=== PATIENT | female | born 1990 | race American Indian/Alaskan Native ===

== ENCOUNTER 2017-05-02 18:24 | Inpatient (IN) | payer OTHER ==
--- NOTE | 2017-05-02 18:56 | Emergency Department Report ---
Stated Complaint: 6 WEEKS /THROWING UP Time Seen by Provider: 05/02/17 18:54 - HPI History of Present Illness: PT states she is 6 weeks and vomiting. pt states she has been vomiting. - ROS Review of Systems: - vaginal bleeding + low back pain + lower abd pain - Exam Physical Exam: PT appears anxious in triage, however, pt appears non toxic abd is soft, rlq ttp MSE screening note: Focused history and physical exam performed. Due to findings the following was ordered: labs, us ED Disposition for MSE Condition: Stable
[2017-05-02 20:15] LABS: Bacteria,Urine 1+ /HPF (Negative); Bilirubin,Urine NEG (Negative); Blood,Urine LG (Negative); Ketones,Urine 80 mg/dL (Negative); Leukocyte Esterase,Urine NEG (Negative); Mucus,Urine 3+ /HPF; Nitrite,Urine NEG (Negative)
[2017-05-02 20:27] LABS: Basophils % (Auto) 0.2 % (0.0-1.8); Hematocrit 40.7 % (30.3-42.9); Hemoglobin 13.4 gm/dl (10.1-14.3); Mean Corpuscular HGB Conc 33 % (30-34); Mean Corpuscular Volume 77 fl (79-97); Platelet Count 236 K/mm3 (140-440); White Blood Count 17.7 K/mm3 (4.5-11.0)
[2017-05-02 20:28] LABS: Mean Corpuscular Hemoglobin 25 pg (28-32)
[2017-05-02 20:46] LABS: Alanine Aminotransferase 49 units/L (7-56); Albumin 4.1 g/dL (3.9-5); Albumin/Globulin Ratio 1.3 %; Alkaline Phosphatase 85 units/L (35-129); Anion Gap 20 mmol/L; BUN/Creatinine Ratio 53.33; Blood Urea Nitrogen 16 mg/dL (7-17); Calcium 9.8 mg/dL (8.4-10.2); Carbon Dioxide 24 mmol/L (22-30); Chloride 93.7 mmol/L (98-107); Glucose 105 mg/dL (65-100); Sodium 135 mmol/L (137-145); Total Protein 7.3 g/dL (6.3-8.2)
[2017-05-02 20:53] LABS: Potassium 2.8 mmol/L (3.6-5.0)
--- NOTE | 2017-05-02 23:13 | Ultrasound Report ---
FINAL REPORT EXAM: US OB \T\lt; = 14 WEEKS FETUS HISTORY: lower abd pain TECHNIQUE: Transabdominal and endovaginal ultrasound was performed in multiple grayscale sonographic images were obtained of the uterus and adnexa PRIORS: Endovaginal ultrasound 05/02/2017 FINDINGS: Uterus measures approximately 8.4 x 6.4 x 7 centimeters. There is a gestational sac in the uterus with a pole that measures 2.8 centimeters in length. heart rate was detected at 187 beats per minute. Yolk sac is identified. Right ovary measures approximately 2.3 x 1.7 x 1.3 centimeters. Left ovary was not identified with certainty during the exam. IMPRESSION: 1. Viable single intrauterine with estimated gestational age 9 weeks 4 days. Estimated due date 12/01/2017. Continued follow-up is recommended. 2. Nonvisualization of left ovary.
--- NOTE | 2017-05-02 23:13 | Ultrasound Report ---
FINAL REPORT EXAM: US OB TRANSVAGINAL HISTORY: lower abd pain TECHNIQUE: Endovaginal ultrasound was performed in multiple grayscale sonographic images were obtained of the uterus and adnexa. PRIORS: Transabdominal pelvic ultrasound 05/02/2017 FINDINGS: There is a gestational sac in the uterus with a pole that measures 2.8 centimeters in length. heart rate was detected at 187 beats per minute. Yolk sac is identified. Right ovary measures approximately 2.3 x 1.7 x 1.3 centimeters. Left ovary was not identified with certainty during the exam. IMPRESSION: 1. Viable single intrauterine with estimated gestational age 9 weeks 4 days. Estimated due date 12/01/2017. Continued follow-up is recommended. 2. Nonvisualization of left ovary.
[2017-05-03] MEDS ORDERED: ZOFRAN IV ONE ×2 (03:50→05:02)
[2017-05-03] MEDS ORDERED: NACL 0.9% 1000 ML 1,000 ML IV ONE ×2 (03:50)
[2017-05-03] MEDS ORDERED: TYLENOL PO ONE (05:00)
[2017-05-03] MEDS ORDERED: TYLENOL ONE (05:02)
--- NOTE | 2017-05-03 05:48 | Emergency Department Report ---
HPI - General Chief Complaint: Abdominal Pain Time Seen by Provider: 05/02/17 18:54 - HPI HPI: This is a 27 year-old female presents to the emergency department with complaint of lower abdominal and/or pelvic pain, nausea and vomiting for the past 3 days. Patient says that she has not been able to keep down any food or liquids over this time. She is about 6 weeks . With this she is with one live child. She does not have an PHARMACY BENEFIT MANAGER. She has been unable to take anything for her symptoms secondary to the consistent nausea and vomiting. No recent travel or sick contacts at home. She otherwise denies any past medical or surgical history. ED Past Medical Hx - Surgical History Past Surgical History?: No - Social History Smoking Status: Never Smoker Substance Use Type: None ED Review of Systems ROS: Stated complaint: 6 WEEKS /THROWING UP Other details as noted in HPI Comment: All other systems reviewed and negative Constitutional: denies: chills, fever Eyes: denies: eye pain, eye discharge, vision change ENT: denies: ear pain, throat pain Respiratory: denies: cough, shortness of breath, wheezing Cardiovascular: denies: chest pain, palpitations Gastrointestinal: abdominal pain, nausea, vomiting Genitourinary: denies: urgency, dysuria, discharge Musculoskeletal: denies: back pain, joint swelling, arthralgia Skin: denies: rash, lesions Neurological: denies: headache, weakness, paresthesias Physical Exam - Physical Exam Vital Signs: Vital Signs 05/02/17 05/02/17 05/03/17 18:54 23:49 03:45 Temperature 98.4 F 98.5 F Pulse Rate 114 H 113 H Respiratory 18 18 Rate Blood Pressure 129/79 139/85 Blood Pressure [Left] O2 Sat by Pulse 99 100 100 Oximetry 05/03/17 05/03/17 05/03/17 03:51 04:01 04:15 Temperature Pulse Rate Respiratory 20 Rate Blood Pressure 160/82 160/82 Blood Pressure [Left] O2 Sat by Pulse 100 99 99 Oximetry 05/03/17 05/03/17 05/03/17 04:30 04:45 05:01 Temperature Pulse Rate Respiratory Rate Blood Pressure 142/69 146/75 146/75 Blood Pressure [Left] O2 Sat by Pulse 100 100 99 Oximetry 05/03/17 05/03/1705/03/17 05:15 05:30 05:42 Temperature 98.4 F Pulse Rate 107 H Respiratory 18 Rate Blood Pressure 125/62 127/72 Blood Pressure 127/72 [Left] O2 Sat by Pulse 100 100 Oximetry Physical Exam: GENERAL: The patient is well-developed well-nourished. HENT: Normocephalic. Atraumatic. Patient has moist mucous membranes. EYES: Extraocular motions are intact. Pupils equal reactive to light bilaterally. NECK: Supple. Trachea is midline. CHEST/LUNGS: Clear to auscultation. There is no respiratory distress noted. HEART/CARDIOVASCULAR: Regular. There is mild tachycardia. There is no gallop rub or murmur. ABDOMEN: Abdomen is soft. There is some lower abdominal and/or upper pelvic tenderness to palpation. No guarding or rebound tenderness. No peritoneal signs to heel strike. Patient has normal bowel sounds. There is no abdominal distention. SKIN: Skin is warm and dry. NEURO: The patient is awake, alert, and oriented. The patient is cooperative. The patient has no focal neurologic deficits. The patient has normal speech. MUSCULOSKELETAL: There is no tenderness or deformity. There is no limitation range of motion. There is no evidence of acute injury. ED Course Vital Signs 05/02/17 05/02/17 05/03/17 18:54 23:49 03:45 Temperature 98.4 F 98.5 F Pulse Rate 114 H 113 H Respiratory 18 18 Rate Blood Pressure 129/79 139/85 Blood Pressure [Left] O2 Sat by Pulse 99 100 100 Oximetry 05/03/17 05/03/17 05/03/17 03:51 04:01 04:15 Temperature Pulse Rate Respiratory 20 Rate Blood Pressure 160/82 160/82 Blood Pressure [Left] O2 Sat by Pulse 100 99 99 Oximetry 05/03/17 05/03/17 05/03/17 04:30 04:45 05:01 Temperature Pulse Rate Respiratory Rate Blood Pressure 142/69 146/75 146/75 Blood Pressure [Left] O2 Sat by Pulse 100 100 99 Oximetry 05/03/17 05/03/17 05/03/17 05:15 05:30 05:42 Temperature 98.4 F Pulse Rate 107 H Respiratory 18 Rate Blood Pressure 125/62 127/72 Blood Pressure 127/72 [Left] O2 Sat by Pulse 100 100 Oximetry - Consultations Consultation #1: I spoke to the PHARMACY BENEFIT MANAGER division traffic superintendent, Dr. Winkler, who has accepted the patient for admission to her service on to mother baby. 05/03/17 05:50 ED Medical Decision Making - Lab Data Result diagrams: 05/02/17 20:08 05/02/17 20:08 - Radiology Data Radiology results: report reviewed EXAM: US OB TRANSVAGINAL HISTORY: lower abd pain TECHNIQUE: Endovaginal ultrasound was performed in multiple grayscale sonographic images were obtained of the uterus and adnexa. PRIORS: Transabdominal pelvic ultrasound 05/02/2017 FINDINGS: There is a gestational sac in the uterus with a pole that measures 2.8 centimeters in length. heart rate was detected at 187 beats per minute. Yolk sac is identified. Right ovary measures approximately 2.3 x 1.7 x 1.3 centimeters. Left ovary was not identified with certainty during the exam. IMPRESSION: 1. Viable single intrauterine with estimated gestational age 9 weeks 4 days. Estimated due date 12/01/2017. Continued follow-up is recommended. 2. Nonvisualization of left ovary. Transcribed By: BURT Dictated By: HARDEEP CHANG MD Electronically Authenticated By: HARDEEP CHANG MD Signed Date/Time: 05/02/171910 - Medical Decision Making 27-year-old female presents to the emergency department with 3 day history of nausea and vomiting as well as some lower abdominal and/or pelvic discomfort. Ultrasound shows live intrauterine at 9 weeks and 4 days. There is nonvisualization of the left ovary but there is already a intrauterine and likelihood of concomitant left ectopic is very low. Other intra- abdominal processes are considered but she does not have any significant pain to palpation of the right lower quadrant of the abdomen or any peritoneal signs and so there is also a lower suspicion for appendicitis. She was given 2 L of IV fluid resuscitation, 8 mg total of Zofran and yet the patient continues to have nausea and vomiting and was unable to take even a sip of water and a dose of Tylenol. This reason the patient will be admitted to the hospital for hyperemesis gravidarum and has been accepted for admission by the PHARMACY BENEFIT MANAGER on-call , Dr. Winkler. - Differential Diagnosis , hyperemesis gravidarum, food poisoning, fibroids Critical Care Time: No Critical care attestation.: If time is entered above; I have spent that time in minutes in the direct care of this critically ill patient, excluding procedure time. ED Disposition Clinical Impression: Hyperemesis gravidarum, Dehydration, Hypokalemia Qualifiers: Weeks of gestation: 9 weeks Qualified Code(s): Z3A.09 - 9 weeks gestation of Nausea & vomiting Qualifiers: Vomiting type: unspecified Vomiting Intractability: intractable Qualified Code( s): R11.2 - Nausea with vomiting, unspecified Disposition: OP ADMIT IP TO THIS HOSP Is pt being admited?: Yes Condition: Stable Instructions: Abdominal Pain (ED) Referrals: PRIMARY CARE, [Primary Care Provider] - 3-5 Days Time of Disposition: 05:52
[2017-05-03] MEDS: KCL 10MEQ/100ML 10 MEQ/100 ML BAG IV SCH ×4 (06:12→13:47)
[2017-05-03] MEDS ORDERED: ZOFRAN IV PRN (07:00)
[2017-05-03] MEDS ORDERED: KCL 10MEQ/100ML 10 MEQ/100 ML BAG IV SCH (07:00)
--- NOTE | 2017-05-03 07:04 | History and Physical Report ---
History of Present Illness Date of examination: 05/03/17 Date of admission: 05/03/17 05:27 Chief complaint: n/v History of present illness: pt presents with n/v in ER. As per ER doc pt was not able to tolerate po. labs showed hypokalemia and ketones in urine. pt dated by sono today as she is not sure of lmp. She has not established care at this time. pt admitted for hyperemeis and will follow hyper emesis pathway. Past History Past Medical History: no pertinent history Past Surgical History: no surgical history Family/Genetic History: none Social history: no significant social history - Obstetrical History Expected Date of Delivery: 12/01/17 Actual Gestation: 9 Week(s) 5 Day(s) : 2 Para: 1 Number of Living Children: 1 Medications and Allergies Allergies Allergy/AdvReac Type Severity Reaction Status Date / Time hydrocodone bitartrate Allergy Shortness Verified 05/02/17 18:56 [From Vicodin] of Breath Active Meds: Active Medications Potassium Chloride (Kcl 10meq/100ml) 10 meq in 100 mls @ 100 mls/hr IV Q1H MIRIAM Stop: 05/03/17 09:59 Last Admin: 05/03/17 06:12 Dose: 100 mls/hr Dextrose/Lactated Ringer's (D5lr) 1,000 mls @ 150 mls/hr IV DIRECT MIRIAM Dextrose/Lactated Ringer's (D5lr) 1,000 mls @ 500 mls/hr IV DIRECT MIRIAM Stop: 05/04/17 08:59 Potassium Chloride (Kcl 10meq/100ml) 10 meq in 100 mls @ 100 mls/hr IV Q1H MIRIAM Stop: 05/03/17 10:59 Metoclopramide HCl (Reglan) 10 mg IV Q6H MIRIAM Multivitamins/Iron/Calcium ( Vitamin) 1 each PO QDAY MIRIAM Ondansetron HCl (Zofran) 4 mg IV Q6H PRN PRN Reason: N/V unrelieved by Reglan Promethazine HCl (Phenergan) 25 mg DC Q6H MIRIAM Review of Systems All systems: negative - Vital Signs Vital signs: Vital Signs Temp Pulse Resp BP Pulse Ox 98.4 F 114 H 18 129/79 99 05/02/17 18:54 05/02/17 18:54 05/02/17 18:54 05/02/17 18:54 05/02/17 18:54 Temp Pulse Resp BP Pulse Ox 98.3 F 107 H 18 140/66 100 05/03/17 06:40 05/03/17 06:40 05/03/17 06:40 05/03/17 06:40 05/03/17 05:42 - Physical Exam Lungs: Positive: Normal air movement Abdomen: Positive: normal appearance, soft. Negative: distention, tenderness, guarding Genitourinary (Female): Positive: other (deferred) Extremities: Positive: normal Results Result Diagrams: 05/02/17 20:08 05/02/17 20:08 All other labs normal. Assessment and Plan - Patient Problems (1) 9 weeks gestation of Current Visit: Yes Status: Acute (2) Hyperemesis gravidarum Current Visit: Yes Status: Acute Plan to address problem: -hyperemesis pathway -f/u added labs (3) Hypokalemia Current Visit: Yes Status: Acute Plan to address problem: -currently being replaced. Will repeat in the am. (4) Nausea & vomiting Current Visit: Yes Status: Acute Qualifiers: Vomiting type: unspecified Vomiting Intractability: intractable Qualified Code(s): R11.2 - Nausea with vomiting, unspecified
[2017-05-03] MEDS ORDERED: D5LR 1,000 ML IV SCH (08:00)
[2017-05-03 08:01] LABS: Amylase 84 units/L (27-131); Lipase 12 units/L (13-60)
[2017-05-03] MEDS: PHENERGAN PR SCH ×3 (08:20→20:18)
[2017-05-03] MEDS: REGLAN IV SCH ×3 (08:31→20:18)
[2017-05-03] MEDS ORDERED: PRENATAL VITAMIN PO SCH (10:00)
[2017-05-03] MEDS: D5LR 1,000 ML IV SCH ×2 (11:41→20:18)
[2017-05-03 12:27] LABS: Urine Drugs of Abuse Note Disclamer
[2017-05-04] MEDS: REGLAN IV SCH ×2 (02:00→08:09)
[2017-05-04] MEDS: PHENERGAN PR SCH ×2 (02:01→08:09)
[2017-05-04] MEDS: D5LR 1,000 ML IV SCH (04:50)
[2017-05-04 05:56] LABS: Anion Gap 13 mmol/L; Blood Urea Nitrogen 5 mg/dL (7-17); Carbon Dioxide 26 mmol/L (22-30); Chloride 102.1 mmol/L (98-107); Glucose 116 mg/dL (65-100); Potassium 3.3 mmol/L (3.6-5.0); Sodium 138 mmol/L (137-145)
--- NOTE | 2017-05-04 06:34 | Progress Note ---
Assessment and Plan - Patient Problems (1) Hyperemesis gravidarum Onset Date: ~05/03/17 Current Visit: Yes Status: Acute Plan to address problem: Pt states she is feeling much better this AM. She c/o some spitting over night but no vomiting. VSS BP 130/70 Ketones are negative. Thyroid Free T4 elevated TSH is low. Will consult with for any f/u. Continue care as ordered Possible d/c later today. Subjective - Subjective Date of service: 05/04/17 (pt states she feels much better; has only had some spitting over night) Principal diagnosis: Hyperemisis Patient reports: appetite normal, voiding normally, ambulating normally Objective - Vital Signs Latest vital signs: Vital Signs Temp Pulse Resp BP 05/04/17 04:15 98.3 F 90 18 130/70 05/04/17 00:45 97.2 F L 92 H 18 140/74 05/03/17 20:00 98.4 F 98 H 18 135/71 05/03/17 16:10 98.4 F 91 H 18 139/69 05/03/17 12:15 98.3 F 99 H 18 134/70 05/03/17 08:10 98.4 F 108 H 19 134/76 05/03/17 06:40 98.3 F 107 H 18 140/66 Intake and Output 05/03/17 05/03/17 05/04/17 14:59 22:59 06:59 Intake Total 295 3515 1360 Output Total 650 Balance -355 3515 1360 Intake: IV 295 3275 1000 D5lr 1,000 ml @ 150 mls/ 1875 1000 hr IV DIRECT MIRIAM Rx#: [id number] D5lr 1,000 ml @ 500 mls/ 1000 hr IV DIRECT MIRIAM Rx#: [id number] KCL 10MEQ/100ML 10 meq In 295 100 ml @ 100 mls/hr IV Q1H MIRIAM Rx#:[id number] KCL 10MEQ/100ML 10 meq In 400 100 ml @ 100 mls/hr IV Q1H MIRIAM Rx#:[id number] Oral 240 360 Output: Urine 650 Void 650 Other: Total, Intake Amount 240 120 Total, Output Amount 250 Voiding Method Toilet Toilet # Voids Void 1 1 1 Weight 130 lb Patient Weight 05/04/17 06:59 Weight 130 lb - Exam Breasts: Present: deferred Cardiovascular: Present: Regular rate Lungs: Present: Normal air movement Abdomen: Present: normal appearance, soft Vulva: both: normal Uterus: Present: normal Extremities: Present: normal Deep Tendon Reflex Grade: Normal +2 - Labs Labs: Abnormal lab results 05/03/17 05/03/17 05/03/17 Range/Units 07:25 07:25 16:57 Potassium (3.6-5.0) mmol/L BUN (7-17) mg/dL Creatinine (0.7-1.2) mg/dL Glucose (65-100) mg/dL Lipase 12 L (13-60) units/L TSH < 0.005 L < 0.005 L (0.270-4.200) mlU/mL Free T4 > 7.77 H (0.76-1.46) ng/dL 05/04/17 Range/Units 04:56 Potassium 3.3 L (3.6-5.0) mmol/L BUN 5 L (7-17) mg/dL Creatinine 0.2 L (0.7-1.2) mg/dL Glucose 116 H (65-100) mg/dL Lipase (13-60) units/L TSH (0.270-4.200) mlU/mL Free T4 (0.76-1.46) ng/dL
--- NOTE | 2017-05-04 09:01 | Discharge Summary ---
Providers - Providers Date of Admission: 05/03/17 05:27 Attending physician: ESTELLE BASHIR Primary care physician: CORRECTIVE THERAPIST Hospitalization Condition: Good Disposition: DC-01 TO HOME OR SELFCARE - Discharge Diagnoses (1) Hyperthyroidism affecting in first trimester Status: Acute (2) 9 weeks gestation of Status: Acute (3) Dehydration Status: Acute (4) Hyperemesis gravidarum Status: Acute Core Measure Documentation - Palliative Care Palliative Care/ Comfort Measures: Not Applicable - Core Measures Any of the following diagnoses?: none Exam - Constitutional Vitals: Temp Pulse Resp BP Pulse Ox 98.3 F 90 18 130/70 100 05/04/17 04:15 05/04/17 04:15 05/04/17 04:05/04/17 04:05/03/17 05:42 Plan Activity: other (No sex) Weight Bearing Status: Weight Bear as Tolerated Diet: clear liquids (clear liquids for 24 hours then advanced to banana, Rice, applesauce and toast. Avoid spicy, fatty, and acidic foods. Drink 64 ounces of water a day.) Special Instructions: no heavy lifting Follow up with: ESTELLE BASHIR MD [Staff Physician] - 05/10/17 1:30 pm Prescriptions: Vit No.130/Iron/FA [ Tablet] 1 each PO DAILY #90 tablet Promethazine [Phenergan SUPPOS] 25 mg TX Q6H #15 supp.rect Propylthiouracil 100 mg PO TID #60 tab Propylthiouracil 100 mg PO TID #60 tab
[2017-05-04 13:10] VITALS: BP 120/68
[2017-05-04] MEDS ORDERED: PROPYLTHIOURACIL PO SCH ×2 (14:00)
== END 2017-05-04 15:30 | disposition home or self-care (01) | DRG 781 ==
LOC: ED 18:24 → OB 05-03 05:27
PROVIDERS: ADMIT Obstetrics & Gynecology; ATTEND Obstetrics & Gynecology
DX: O99.281 Endocrine, nutritional and metabolic diseases complicating pregnancy, first trimester (principal); O21.0 Mild hyperemesis gravidarum; E86.0 Dehydration; E87.6 Hypokalemia; Z3A.09 9 weeks gestation of pregnancy; Z88.5 Allergy status to narcotic agent; E05.80 Other thyrotoxicosis without thyrotoxic crisis or storm
CPT/HCPCS: 36415; 76801; 76817; 80048; 80053; 80307; 81001; 82010; 82150; 83690; 84439; 84443; 84702; 85025; 86900; 86901; 96361; 96374; 96376; J2405; J2765; J3480; J7030; J7121

== ENCOUNTER 2017-05-25 21:27 | Emergency (ER) | payer SELFPAY ==
[2017-05-25] MEDS ORDERED: NACL 0.9% 1000 ML 1,000 ML IV ONE (21:49)
--- NOTE | 2017-05-25 21:50 | Emergency Department Report ---
ED HPI - General Chief complaint: Vaginal Bleeding Stated complaint: VAG BLEED 16 WKS PREG Time Seen by Provider: 05/25/17 21:47 Source: patient, EMS (ems notes not available at time of chart dictation), RN notes reviewed, old records reviewed Mode of arrival: Stretcher Limitations: No Limitations - History of Present Illness Initial comments: This is a 27-year-old female who was previously unknown to this provider, patient recently admitted to the obstetric service for hyperemesis, presenting with lower abdominal cramping and vaginal bleeding. Symptoms are constant. Pain is suprapubic. It does not radiate anywhere. Pain increases with palpation and range of motion, decreases with rest. No fevers or chills, no chest pain, no urinary symptoms, patient is quite anxious. MD Complaint: abdominal pain, vaginal bleeding -: Gradual Location: abdomen Radiation: suprapubic Severity: moderate Quality: stabbing Consistency: constant Improves with: rest Worsens with: movement Associated symptoms: vaginal bleeding. denies: dysuria OB History - Previous Pregnancies: hyperemesis Pre- care: none, previous ultrasound confi - Related Data Previous Rx's Medication Instructions Recorded Last Taken Type Vit No.130/Iron/Folic 1 each PO DAILY #90 tablet 05/04/17 Unknown Rx [ Tablet] Promethazine [Phenergan SUPPOS] 25 mg NH Q6H #15 supp.rect 05/04/17 Unknown Rx Propylthiouracil 100 mg PO TID #60 tab 05/04/17 Unknown Rx Propylthiouracil 100 mg PO TID #60 tab 05/04/17 Unknown Rx Allergies Allergy/AdvReac Type Severity Reaction Status Date / Time hydrocodone bitartrate Allergy Shortness Verified 05/02/17 18:56 [From Vicodin] of Breath ED Review of Systems ROS: Stated complaint: VAG BLEED 16 WKS PREG Other details as noted in HPI Constitutional: malaise. denies: fever Eyes: denies: vision change ENT: denies: epistaxis Respiratory: denies: cough Cardiovascular: denies: chest pain Gastrointestinal: abdominal pain Genitourinary: abnormal menses Musculoskeletal: denies: back pain Neurological: weakness Psychiatric: anxiety ED Past Medical Hx - Past Medical History Previous Medical History?: No Hx Congestive Heart Failure: No Hx Diabetes: No Hx Asthma: No Hx COPD: No - Surgical History Past Surgical History?: No - Social History Smoking Status: Unknown if ever smoked Substance Use Type: None - Medications Home Medications: Home Medications Medication Instructions Recorded Confirmed Last Taken Type Vit No.130/Iron/Folic 1 each PO DAILY #90 tablet 05/04/17 Unknown Rx [ Tablet] Promethazine [Phenergan SUPPOS] 25 mg NH Q6H #15 supp.rect 05/04/17 Unknown Rx Propylthiouracil 100 mg PO TID #60 tab 05/04/17 Unknown Rx Propylthiouracil 100 mg PO TID #60 tab 05/04/17 Unknown Rx ED Physical Exam - General Limitations: No Limitations General appearance: alert, anxious - Head Head exam: Present: atraumatic, normocephalic - Eye Eye exam: Present: normal appearance, EOMI - ENT ENT exam: Present: normal exam, normal orophraynx, mucous membranes moist - Neck Neck exam: Present: normal inspection, full ROM. Absent: tenderness, meningismus - Respiratory Respiratory exam: Present: normal lung sounds bilaterally. Absent: respiratory distress, wheezes, rales, rhonchi, stridor, chest wall tenderness, accessory muscle use, decreased breath sounds, prolonged expiratory - Cardiovascular Cardiovascular Exam: Present: normal rhythm, tachycardia, normal heart sounds. Absent: systolic murmur, diastolic murmur, rubs, gallop - GI/Abdominal GI/Abdominal exam: Present: soft, normal bowel sounds. Absent: distended, tenderness, guarding, rebound, rigid, pulsatile mass - Speculum exam: Present: other (patient declined a gynecologic examination) - Extremities Exam Extremities exam: Present: normal inspection, full ROM, normal capillary refill. Absent: pedal edema, joint swelling, calf tenderness - Back Exam Back exam: Present: normal inspection, full ROM. Absent: tenderness, CVA tenderness (R), CVA tenderness (L), muscle spasm, paraspinal tenderness, vertebral tenderness - Neurological Exam Neurological exam: Present: alert, oriented X3, normal gait, other (Extraocular movements intact. Tongue midline. No facial droop. Facial sensation intact to light touch in the V1, V2, V3 distribution bilaterally. 5 and 5 strength in 4 extremities.. Sensation is intact to light touch in 4 extremities.). Absent : motor sensory deficit - Psychiatric Psychiatric exam: Present: anxious - Skin Skin exam: Present: warm, dry, intact, normal color. Absent: rash ED Course Vital Signs 05/25/17 05/25/17 05/26/17 21:43 22:12 01:08 Temperature 98.9 F Pulse Rate 129 H 120 H 102 H Respiratory 18 18 Rate Blood Pressure 128/73 102/71 [Left] O2 Sat by Pulse 100 100 Oximetry ED Medical Decision Making - Lab Data Result diagrams: 05/25/17 21:42 05/25/17 Unknown Vital Signs 05/25/17 05/25/17 21:43 22:12 Temperature 98.9 F Pulse Rate 129 H 120 H Respiratory 18 Rate Blood Pressure 128/73 [Left] O2 Sat by Pulse 100 Oximetry Lab Results 05/25/17 05/25/17 05/25/17 Range/Units 21:42 21:42 21:42 WBC 11.0 (4.5-11.0) K/mm3 RBC 4.52 (3.65-5.03) M/mm3 Hgb 11.9 (10.1-14.3) gm/dl Hct 35.1 (30.3-42.9) % MCV 78 L (79-97) fl MCH 26 L (28-32) pg MCHC 34 (30-34) % RDW 15.0 (13.2-15.2) % Plt Count 266 (140-440) K/mm3 Lymph % (Auto) 21.7 (13.4-35.0) % [place] % (Auto) 11.2 H (0.0-7.3) % Eos % (Auto) 2.0 (0.0-4.3) % Baso % (Auto) 0.2 (0.0-1.8) % Lymph # 2.4 (1.2-5.4) K/mm3 [place] # 1.2 H (0.0-0.8) K/mm3 Eos # 0.2 (0.0-0.4) K/mm3 Baso # 0.0 (0.0-0.1) K/mm3 Seg Neutrophils % 64.9 (40.0-70.0) % Seg Neutrophils # 7.1 (1.8-7.7) K/mm3 PT INR APTT Sodium (137-145) mmol/L Potassium (3.6-5.0) mmol/L Chloride (98-107) mmol/L Carbon Dioxide (22-30) mmol/L Anion Gap mmol/L BUN (7-17) mg/dL Creatinine (0.7-1.2) mg/dL Estimated GFR ml/min BUN/Creatinine Ratio % Glucose (65-100) mg/dL Calcium (8.4-10.2) mg/dL Magnesium (1.7-2.3) mg/dL HCG, Quant 7270 H (0-4) mIU/mL Urine Color (Yellow) Urine Turbidity (Clear) Urine pH (5.0-7.0) Ur Specific [place] (1.003-1.030) Urine Protein (Negative) mg/dL Urine Glucose (UA) (Negative) mg/dL Urine Ketones (Negative) mg/dL Urine Blood (Negative) Urine Nitrite (Negative) Urine Bilirubin (Negative) Urine Urobilinogen (<2.0) mg/dL Ur Leukocyte Esterase (Negative) Urine WBC (Auto) (0.0-6.0) /HPF Urine RBC (Auto) (0.0-6.0) /HPF U Epithel Cells (Auto) (0-13.0) /HPF Urine Bacteria (Auto) (Negative) /HPF Urine Mucus /HPF Blood Type O POSITIVE Antibody Screen TNR ARMANDO Antibody Screen Negative 05/25/17 05/25/17 05/25/17 Range/Units 22:04 22:50 23:04 WBC (4.5-11.0) K/mm3 RBC (3.65-5.03) M/mm3 Hgb (10.1-14.3) gm/dl Hct (30.3-42.9) % MCV (79-97) fl MCH (28-32) pg MCHC (30-34) % RDW (13.2-15.2) % Plt Count (140-440) K/mm3 Lymph % (Auto) (13.4-35.0) % [place] % (Auto) (0.0-7.3) % Eos % (Auto) (0.0-4.3) % Baso % (Auto) (0.0-1.8) % Lymph # (1.2-5.4) K/mm3 [place] # (0.0-0.8) K/mm3 Eos # (0.0-0.4) K/mm3 Baso # (0.0-0.1) K/mm3 Seg Neutrophils % (40.0-70.0) % Seg Neutrophils # (1.8-7.7) K/mm3 PT TNR 13.2 INR TNR 0.95 APTT TNR 34.0 Sodium (137-145) mmol/L Potassium (3.6-5.0) mmol/L Chloride (98-107) mmol/L Carbon Dioxide (22-30) mmol/L Anion Gap mmol/L BUN (7-17) mg/dL Creatinine (0.7-1.2) mg/dL Estimated GFR ml/min BUN/Creatinine Ratio % Glucose (65-100) mg/dL Calcium (8.4-10.2) mg/dL Magnesium (1.7-2.3) mg/dL HCG, Quant (0-4) mIU/mL Urine Color Yellow (Yellow) Urine Turbidity Clear (Clear) Urine pH 5.0 (5.0-7.0) Ur Specific [place] 1.018 (1.003-1.030) Urine Protein <15 mg/dl (Negative) mg/dL Urine Glucose (UA) Neg (Negative) mg/dL Urine Ketones Neg (Negative) mg/dL Urine Blood Lg (Negative) Urine Nitrite Neg (Negative) Urine Bilirubin Neg (Negative) Urine Urobilinogen 2.0 (<2.0) mg/dL Ur Leukocyte Esterase Tr (Negative) Urine WBC (Auto) 4.0 (0.0-6.0) /HPF Urine RBC (Auto) 12.0 (0.0-6.0) /HPF U Epithel Cells (Auto) 4.0 (0-13.0) /HPF Urine Bacteria (Auto) 1+ (Negative) /HPF Urine Mucus 1+ /HPF Blood Type Antibody Screen ARMANDO Antibody Screen 05/25/17 Range/Units Unknown WBC (4.5-11.0) K/mm3 RBC (3.65-5.03) M/mm3 Hgb (10.1-14.3) gm/dl Hct (30.3-42.9) % MCV (79-97) fl MCH (28-32) pg MCHC (30-34) % RDW (13.2-15.2) % Plt Count (140-440) K/mm3 Lymph % (Auto) (13.4-35.0) % [place] % (Auto) (0.0-7.3) % Eos % (Auto) (0.0-4.3) % Baso % (Auto) (0.0-1.8) % Lymph # (1.2-5.4) K/mm3 [place] # (0.0-0.8) K/mm3 Eos # (0.0-0.4) K/mm3 Baso # (0.0-0.1) K/mm3 Seg Neutrophils % (40.0-70.0) % Seg Neutrophils # (1.8-7.7) K/mm3 PT INR APTT Sodium 139 (137-145) mmol/L Potassium 3.8 (3.6-5.0) mmol/L Chloride 102.9 (98-107) mmol/L Carbon Dioxide 22 (22-30) mmol/L Anion Gap 18 mmol/L BUN 7 (7-17) mg/dL Creatinine 0.3 L (0.7-1.2) mg/dL Estimated GFR > 60 ml/min BUN/Creatinine Ratio 23 % Glucose 102 H (65-100) mg/dL Calcium 9.2 (8.4-10.2) mg/dL Magnesium 1.70 (1.7-2.3) mg/dL HCG, Quant (0-4) mIU/mL Urine Color (Yellow) Urine Turbidity (Clear) Urine pH (5.0-7.0) Ur Specific [place] (1.003-1.030) Urine Protein (Negative) mg/dL Urine Glucose (UA) (Negative) mg/dL Urine Ketones (Negative) mg/dL Urine Blood (Negative) Urine Nitrite (Negative) Urine Bilirubin (Negative) Urine Urobilinogen (<2.0) mg/dL Ur Leukocyte Esterase (Negative) Urine WBC (Auto) (0.0-6.0) /HPF Urine RBC (Auto) (0.0-6.0) /HPF U Epithel Cells (Auto) (0-13.0) /HPF Urine Bacteria (Auto) (Negative) /HPF Urine Mucus /HPF Blood Type Antibody Screen ARMANDO Antibody Screen - EKG Data -: EKG Interpreted by Me Rate: tachycardia - EKG Data 05/26/17 01:09 Sinus tachycardia, with 117 bpm, normal axis, QTC prolonged, not marked logically consistent with STEMI - Radiology Data Radiology results: report reviewed, image reviewed Transvaginal ultrasound/obstetrics ultrasound demonstrates demise - Medical Decision Making Differential diagnosis: demise, miscarriage, anxiety, dehydration Assessment and plan: 27-year-old female, presenting with lower abdominal cramping, reported vaginal bleeding, ultrasound demonstrates demise. Patient recently admitted to the hospital for hyperemesis, at that time, she was 9 weeks and 5 days, this was 05/03/2017, Patient declined a gynecologic examination, the patient is Rh+, she does not have irritative and obstructive urinary symptoms. She is somewhat anxious, got a few liters of fluid and some IV Benadryl, heart rate now 102 bpm, patient is quite anxious. I would expect some physiologic tachycardia from , patient has not been bleeding copiously, she is hemodynamically stable at this time. Patient will be discharged with instructions to follow-up with gynecology and for expected management. Critical care attestation.: If time is entered above; I have spent that time in minutes in the direct care of this critically ill patient, excluding procedure time. ED Disposition Clinical Impression: Miscarriage Disposition: DC-01 TO HOME OR SELFCARE Is pt being admited?: No Does the pt Need Aspirin: No Condition: Stable Instructions: Spontaneous Miscarriage (ED) Additional Instructions: Rest and avoid heavy lifting. Avoid strenuous physical activity. Avoid sex and heavy lifting, and follow up with a florist supplies salesperson as soon as possible. you have experienced a miscarriage. It is very important to follow up with outpatient gynecology. Return to the ER right away with fevers, chills, chest pain, shortness of breath , confusion, loss of consciousness, intractable nausea or vomiting, inability to tolerate liquid feeds, bleeding more than 2 pads per hour, lightheadedness, loss of consciousness. Referrals: PRIMARY CARE, [Primary Care Provider] - 3-5 Days [facility] [Provider Group] - 3-5 Days [facility] [Provider Group] - 3-5 Days [facility] [Provider Group] - 3-5 Days
[2017-05-25] MEDS ORDERED: D5/0.45NS 1,000 ML IV SCH (22:00)
[2017-05-25 22:06] LABS: Basophils % (Auto) 0.2 % (0.0-1.8); Hematocrit 35.1 % (30.3-42.9); Hemoglobin 11.9 gm/dl (10.1-14.3); Mean Corpuscular HGB Conc 34 % (30-34); Mean Corpuscular Hemoglobin 26 pg (28-32); Mean Corpuscular Volume 78 fl (79-97); Platelet Count 266 K/mm3 (140-440); Red Blood Count 4.52 M/mm3 (3.65-5.03)
[2017-05-25 22:24] LABS: Anion Gap 18 mmol/L; BUN/Creatinine Ratio 23; Blood Urea Nitrogen 7 mg/dL (7-17); Calcium 9.2 mg/dL (8.4-10.2); Carbon Dioxide 22 mmol/L (22-30); Chloride 102.9 mmol/L (98-107); Glucose 102 mg/dL (65-100); Potassium 3.8 mmol/L (3.6-5.0); Sodium 139 mmol/L (137-145)
[2017-05-25 22:58] LABS: INR TNR (0.87-1.13)
[2017-05-25 23:01] LABS: Partial Thromboplastin Time TNR Sec. (24.2-36.6)
[2017-05-25 23:08] LABS: Bacteria,Urine 1+ /HPF (Negative); Bilirubin,Urine NEG (Negative); Blood,Urine LG (Negative); Ketones,Urine NEG (Negative); Leukocyte Esterase,Urine TR (Negative); Mucus,Urine 1+ /HPF; Nitrite,Urine NEG (Negative); Protein,Urine <15 mg/dL mg/dL (Negative)
[2017-05-25] MEDS ORDERED: BENADRYL IV ONE (23:14)
[2017-05-25 23:36] LABS: INR 0.95 (0.87-1.13)
--- NOTE | 2017-05-25 23:56 | Ultrasound Report ---
FINAL REPORT EXAM: US OB TRANSVAGINAL HISTORY: vag bleed TECHNIQUE: Real-time sonography was performed of the gravid uterus endovaginally and images are submitted for interpretation. PRIORS: None. FINDINGS: There is a gestational sac in the uterus with a pole that measures 3.6 cm for an estimated gestational age of 10 weeks 3 days. No heart motion is demonstrated. The skin appears edematous. The left ovary appears normal measuring 2.6 x 1.3 x 2.2 cm. The right ovary was not visualized. IMPRESSION: Intrauterine gestation at 10 weeks 3 days with demise.
--- NOTE | 2017-05-26 00:06 | Ultrasound Report ---
FINAL REPORT PROCEDURE: US OB \T\lt; = 14 WEEKS FETUS TECHNIQUE: Real-time transabdominal sonography of the uterus, placenta, amniotic fluid, adnexa, and fetus was performed with image documentation. Measurements were obtained to determine age/size. M-mode Doppler was used to document heartbeat. CPT 71579 HISTORY: vag bleed COMPARISON: No prior studies are available for comparison. FINDINGS: CRL: 3.6 mm, which corresponds to a gestational age of: 10 weeks, 3 days. Yolk Sac: Normal. Embryonic Cardiac Activity: None detected Gestational Sac: Normal. Amniotic fluid: Normal. Cervix: Normal. Right Ovary: Not identified Left Ovary: 2.6 x 1.3 x 2.2 Estimated delivery date: 12/18/2017 Uterus and adnexa: Normal. IMPRESSION: Nonviable at 10 weeks and 1 day. There is no cardiac activity.
[2017-05-26 01:09] VITALS: BP 102/71
== END 2017-05-26 01:30 | disposition home or self-care (01) ==
LOC: ED 21:27
DX: O03.9 Complete or unspecified spontaneous abortion without complication (principal); Z88.8 Allergy status to other drugs, medicaments and biological substances
CPT/HCPCS: 36415; 76801; 76817; 80048; 81001; 83735; 84702; 85025; 85610; 85730; 86850; 86900; 86901; 93005; 93010; 96361; 96374; 99285; J1200; J7030

== ENCOUNTER 2020-01-27 14:06 | Emergency (ER) | payer MEDICAID ==
[2020-01-27 16:05] LABS: Basophils % (Auto) 0.5 % (0.0-1.8); Eosinophils % (Auto) 1.6 % (0.0-4.3); Hemoglobin 12.3 gm/dl (10.1-14.3); Lymphocytes % (Auto) 15.8 % (13.4-35.0); Mean Corpuscular HGB Conc 33 % (30-34); Mean Corpuscular Volume 92 fl (79-97); Monocytes % (Auto) 8.6 % (0.0-7.3); Platelet Count 254 K/mm3 (140-440); Red Blood Count 4.04 M/mm3 (3.65-5.03); Red Cell Distribution Width 13.9 % (13.2-15.2)
[2020-01-27 16:06] LABS: Basophils # (Auto) 0.1 K/mm3 (0.0-0.1); Eosinophils # (Auto) 0.2 K/mm3 (0.0-0.4); Lymphocytes # (Auto) 1.9 K/mm3 (1.2-5.4)
[2020-01-27 16:30] LABS: Alanine Aminotransferase 11 units/L (7-56); Albumin 4.6 g/dL (3.9-5); BUN/Creatinine Ratio 16; Blood Urea Nitrogen 8 mg/dL (7-17); Calcium 9.5 mg/dL (8.4-10.2)
[2020-01-27 16:37] LABS: Hemolysis Index 2
[2020-01-27 16:37] LABS: Bilirubin,Urine NEG (Negative); Blood,Urine LG (Negative); Color,Urine Yellow (Yellow); Mucus,Urine 3+ /HPF
--- NOTE | 2020-01-27 18:06 | Emergency Department Report ---
HPI <MICHAEL GARCIA - Last Filed: 01/27/20 21:32> - HPI HPI: This is a 29-year-old female presents to the emergency department with a complaint of having a "gush of blood" vaginally that occurred just prior to presentation, and the patient is about 12 weeks . With this she is G7, P2 with 2 live children and 4 previous miscarriages. The patient follows with Dr. Michaelle Martinez of [facility]. She denies any pelvic pain or cramping, fever, dysuria, vaginal discharge. Patient says that she has not had any significant bleeding since arrival to the emergency department. She has not taken anything for symptoms prior to presentation. <SAL SPARROW S - Last Filed: 01/28/20 14:22> - General Chief Complaint: Vaginal Bleeding Time Seen by Provider: 01/27/20 15:12 ED Past Medical Hx <MICHAEL GARCIA - Last Filed: 01/27/20 21:32> - Past Medical History Hx Congestive Heart Failure: No Hx Diabetes: No Hx Asthma: No Hx COPD: No - Surgical History Past Surgical History?: No - Social History Smoking Status: Former Smoker <BRENNASAL Mujica - Last Filed: 01/28/20 14:22> - Medications Home Medications: Home Medications Medication Instructions Recorded Confirmed Last Taken Type Vit No.130/Iron/Folic 1 each PO DAILY #90 tablet 05/04/17 Unknown Rx [ Tablet] Promethazine [Phenergan SUPPOS] 25 mg [place] Q6H #15 supp.rect 05/04/17 Unknown Rx propylthiouraciL [Propylthiouracil] 100 mg PO TID #60 tab 05/04/17 Unknown Rx propylthiouraciL [Propylthiouracil] 100 mg PO TID #60 tab 05/04/17 Unknown Rx Nitrofurantoin [place]/M-Cryst 100 mg PO Q12HR #14 capsule 01/27/20 Unknown Rx [Macrobid CAP] ED Review of Systems ROS: Stated complaint: PREG BLEEDING Other details as noted in HPI <ABMICHAEL - Last Filed: 01/27/20 21:32> ROS: Stated complaint: PREG BLEEDING Other details as noted in HPI Comment: All other systems reviewed and negative Constitutional: denies: chills, fever Eyes: denies: eye pain, vision change Respiratory: denies: cough, shortness of breath Cardiovascular: denies: chest pain, palpitations Gastrointestinal: denies: abdominal pain, vomiting Genitourinary: other (vaginal bleeding). denies: dysuria, discharge Musculoskeletal: denies: back pain Neurological: denies: headache, weakness <SAL SPARROW S - Last Filed: 01/28/20 14:22> Physical Exam - Physical Exam Vital Signs: Vital Signs 01/27/20 01/27/20 14:31 19:13 Temperature 98.7 F Pulse Rate 85 83 Respiratory 20 16 Rate Blood Pressure 122/77 117/68 Blood Pressure 122/77 [Left] O2 Sat by Pulse 100 96 Oximetry <MICHAEL GARCIA - Last Filed: 01/27/20 21:32> - Physical Exam Vital Signs: Vital Signs 01/27/20 14:31 Temperature 98.7 F Pulse Rate 77 Respiratory 20 Rate Blood Pressure 122/77 [Left] O2 Sat by Pulse 100 Oximetry Physical Exam: GENERAL: The patient is well-developed well-nourished. HENT: Normocephalic. Atraumatic. Patient has moist mucous membranes. EYES: Extraocular motions are intact. NECK: Supple. Trachea is midline. CHEST/LUNGS: Clear to auscultation. There is no respiratory distress noted. HEART/CARDIOVASCULAR: Regular. There is no tachycardia. ABDOMEN: Abdomen is soft, nontender. Patient has normal bowel sounds. There is no abdominal distention. SKIN: Skin is warm and dry. NEURO: The patient is awake, alert, and oriented. The patient is cooperative. Normal speech. MUSCULOSKELETAL: There is no tenderness or deformity. There is no evidence of acute injury. <SAL SPARROW S - Last Filed: 01/28/20 14:22> ED Course Vital Signs 01/27/20 01/27/20 14:31 19:13 Temperature 98.7 F Pulse Rate 85 83 Respiratory 20 16 Rate Blood Pressure 122/77 117/68 Blood Pressure 122/77 [Left] O2 Sat by Pulse 100 96 Oximetry - Reevaluation(s) Reevaluation #1: 01/27/20 21:32 Ultrasound reviewed and appreciated. Vital signs reviewed and appreciated. Abdomen soft on my repeat examination. Patient asking to leave. She will be discharged as a probable threatened miscarriage. Return precautions are reviewed. Antibiotics ordered for bacteriuria by Dr. Sparrow <MICHAEL GARCIA - Last Filed: 01/27/20 21:32> Vital Signs 01/27/20 14:31 Temperature 98.7 F Pulse Rate 77 Respiratory 20 Rate Blood Pressure 122/77 [Left] O2 Sat by Pulse 100 Oximetry <SAL SPARROW - Last Filed: 01/28/20 14:22> ED Medical Decision Making - Lab Data Result diagrams: 01/27/20 15:32 01/27/20 15:32 Lab Results 01/27/20 01/27/20 01/27/20 Range/Units 15:32 15:32 15:32 WBC 12.0 H (4.5-11.0) K/mm3 RBC 4.04 (3.65-5.03) M/mm3 Hgb 12.3 (10.1-14.3) gm/dl Hct 37.0 (30.3-42.9) % MCV 92 (79-97) fl MCH 30 (28-32) pg MCHC 33 (30-34) % RDW 13.9 (13.2-15.2) % Plt Count 254 (140-440) K/mm3 Lymph % (Auto) 15.8 (13.4-35.0) % [place] % (Auto) 8.6 H (0.0-7.3) % Eos % (Auto) 1.6 (0.0-4.3) % Baso % (Auto) 0.5 (0.0-1.8) % Lymph # 1.9 (1.2-5.4) K/mm3 [place] # 1.0 H (0.0-0.8) K/mm3 Eos # 0.2 (0.0-0.4) K/mm3 Baso # 0.1 (0.0-0.1) K/mm3 Seg Neutrophils % 73.5 H (40.0-70.0) % Seg Neutrophils # 8.8 H (1.8-7.7) K/mm3 Sodium 136 L (137-145) mmol/L Potassium 3.8 (3.6-5.0) mmol/L Chloride 101.0 (98-107) mmol/L Carbon Dioxide 24 (22-30) mmol/L Anion Gap 15 mmol/L BUN 8 (7-17) mg/dL Creatinine 0.5 L (0.7-1.2) mg/dL Estimated GFR > 60 ml/min BUN/Creatinine Ratio 16 % Glucose 80 (65-100) mg/dL Calcium 9.5 (8.4-10.2) mg/dL Total Bilirubin 0.70 (0.1-1.2) mg/dL AST 13 (5-40) units/L ALT 11 (7-56) units/L Alkaline Phosphatase 47 (35-129) units/L Total Protein 7.4 (6.3-8.2) g/dL Albumin 4.6 (3.9-5) g/dL Albumin/Globulin Ratio 1.6 % HCG, Quant 46427 H (0-4) mIU/mL Urine Color (Yellow) Urine Turbidity (Clear) Urine pH (5.0-7.0) Ur Specific [place] (1.003-1.030) Urine Protein (Negative) mg/dL Urine Glucose (UA) (Negative) mg/dL Urine Ketones (Negative) mg/dL Urine Blood (Negative) Urine Nitrite (Negative) Urine Bilirubin (Negative) Urine Urobilinogen (<2.0) mg/dL Ur Leukocyte Esterase (Negative) Urine WBC (Auto) (0.0-6.0) /HPF Urine RBC (Auto) (0.0-6.0) /HPF U Epithel Cells (Auto) (0-13.0) /HPF Urine Mucus /HPF Urine Yeast (Budding) /HPF Blood Type 01/27/20 01/27/20 Range/Units 15:32 Unknown WBC (4.5-11.0) K/mm3 RBC (3.65-5.03) M/mm3 Hgb (10.1-14.3) gm/dl Hct (30.3-42.9) % MCV (79-97) fl MCH (28-32) pg MCHC (30-34) % RDW (13.2-15.2) % Plt Count (140-440) K/mm3 Lymph % (Auto) (13.4-35.0) % [place] % (Auto) (0.0-7.3) % Eos % (Auto) (0.0-4.3) % Baso % (Auto) (0.0-1.8) % Lymph # (1.2-5.4) K/mm3 [place] # (0.0-0.8) K/mm3 Eos # (0.0-0.4) K/mm3 Baso # (0.0-0.1) K/mm3 Seg Neutrophils % (40.0-70.0) % Seg Neutrophils # (1.8-7.7) K/mm3 Sodium (137-145) mmol/L Potassium (3.6-5.0) mmol/L Chloride (98-107) mmol/L Carbon Dioxide (22-30) mmol/L Anion Gap mmol/L BUN (7-17) mg/dL Creatinine (0.7-1.2) mg/dL Estimated GFR ml/min BUN/Creatinine Ratio % Glucose (65-100) mg/dL Calcium (8.4-10.2) mg/dL Total Bilirubin (0.1-1.2) mg/dL AST (5-40) units/L ALT (7-56) units/L Alkaline Phosphatase (35-129) units/L Total Protein (6.3-8.2) g/dL Albumin (3.9-5) g/dL Albumin/Globulin Ratio % HCG, Quant (0-4) mIU/mL Urine Color Yellow (Yellow) Urine Turbidity Clear (Clear) Urine pH 6.0 (5.0-7.0) Ur Specific [place] 1.020 (1.003-1.030) Urine Protein 30 mg/dl (Negative) mg/dL Urine Glucose (UA) Neg (Negative) mg/dL Urine Ketones Neg (Negative) mg/dL Urine Blood Lg (Negative) Urine Nitrite Neg (Negative) Urine Bilirubin Neg (Negative) Urine Urobilinogen 4.0 (<2.0) mg/dL Ur Leukocyte Esterase Tr (Negative) Urine WBC (Auto) 18.0 H (0.0-6.0) /HPF Urine RBC (Auto) 116.0 (0.0-6.0) /HPF U Epithel Cells (Auto) 5.0 (0-13.0) /HPF Urine Mucus 3+ /HPF Urine Yeast (Budding) 1+ /HPF Blood Type O POSITIVE Lab Results 01/27/20 01/27/20 01/27/20 Range/Units 15:32 15:32 15:32 WBC 12.0 H (4.5-11.0) K/mm3 RBC 4.04 (3.65-5.03) M/mm3 Hgb 12.3 (10.1-14.3) gm/dl Hct 37.0 (30.3-42.9) % MCV 92 (79-97) fl MCH 30 (28-32) pg MCHC 33 (30-34) % RDW 13.9 (13.2-15.2) % Plt Count 254 (140-440) K/mm3 Lymph % (Auto) 15.8 (13.4-35.0) % [place] % (Auto) 8.6 H (0.0-7.3) % Eos % (Auto) 1.6 (0.0-4.3) % Baso % (Auto) 0.5 (0.0-1.8) % Lymph # 1.9 (1.2-5.4) K/mm3 [place] # 1.0 H (0.0-0.8) K/mm3 Eos # 0.2 (0.0-0.4) K/mm3 Baso # 0.1 (0.0-0.1) K/mm3 Seg Neutrophils % 73.5 H (40.0-70.0) % Seg Neutrophils # 8.8 H (1.8-7.7) K/mm3 Sodium 136 L (137-145) mmol/L Potassium 3.8 (3.6-5.0) mmol/L Chloride 101.0 (98-107) mmol/L Carbon Dioxide 24 (22-30) mmol/L Anion Gap 15 mmol/L BUN 8 (7-17) mg/dL Creatinine 0.5 L (0.7-1.2) mg/dL Estimated GFR > 60 ml/min BUN/Creatinine Ratio 16 % Glucose 80 (65-100) mg/dL Calcium 9.5 (8.4-10.2) mg/dL Total Bilirubin 0.70 (0.1-1.2) mg/dL AST 13 (5-40) units/L ALT 11 (7-56) units/L Alkaline Phosphatase 47 (35-129) units/L Total Protein 7.4 (6.3-8.2) g/dL Albumin 4.6 (3.9-5) g/dL Albumin/Globulin Ratio 1.6 % HCG, Quant 40344 H (0-4) mIU/mL Urine Color (Yellow) Urine Turbidity (Clear) Urine pH (5.0-7.0) Ur Specific [place] (1.003-1.030) Urine Protein (Negative) mg/dL Urine Glucose (UA) (Negative) mg/dL Urine Ketones (Negative) mg/dL Urine Blood (Negative) Urine Nitrite (Negative) Urine Bilirubin (Negative) Urine Urobilinogen (<2.0) mg/dL Ur Leukocyte Esterase (Negative) Urine WBC (Auto) (0.0-6.0) /HPF Urine RBC (Auto) (0.0-6.0) /HPF U Epithel Cells (Auto) (0-13.0) /HPF Urine Mucus /HPF Urine Yeast (Budding) /HPF Blood Type 01/27/20 01/27/20 Range/Units 15:32 Unknown WBC (4.5-11.0) K/mm3 RBC (3.65-5.03) M/mm3 Hgb (10.1-14.3) gm/dl Hct (30.3-42.9) % MCV (79-97) fl MCH (28-32) pg MCHC (30-34) % RDW (13.2-15.2) % Plt Count (140-440) K/mm3 Lymph % (Auto) (13.4-35.0) % [place] % (Auto) (0.0-7.3) % Eos % (Auto) (0.0-4.3) % Baso % (Auto) (0.0-1.8) % Lymph # (1.2-5.4) K/mm3 [place] # (0.0-0.8) K/mm3 Eos # (0.0-0.4) K/mm3 Baso # (0.0-0.1) K/mm3 Seg Neutrophils % (40.0-70.0) % Seg Neutrophils # (1.8-7.7) K/mm3 Sodium (137-145) mmol/L Potassium (3.6-5.0) mmol/L Chloride (98-107) mmol/L Carbon Dioxide (22-30) mmol/L Anion Gap mmol/L BUN (7-17) mg/dL Creatinine (0.7-1.2) mg/dL Estimated GFR ml/min BUN/Creatinine Ratio % Glucose (65-100) mg/dL Calcium (8.4-10.2) mg/dL Total Bilirubin (0.1-1.2) mg/dL AST (5-40) units/L ALT (7-56) units/L Alkaline Phosphatase (35-129) units/L Total Protein (6.3-8.2) g/dL Albumin (3.9-5) g/dL Albumin/Globulin Ratio % HCG, Quant (0-4) mIU/mL Urine Color Yellow (Yellow) Urine Turbidity Clear (Clear) Urine pH 6.0 (5.0-7.0) Ur Specific [place] 1.020 (1.003-1.030) Urine Protein 30 mg/dl (Negative) mg/dL Urine Glucose (UA) Neg (Negative) mg/dL Urine Ketones Neg (Negative) mg/dL Urine Blood Lg (Negative) Urine Nitrite Neg (Negative) Urine Bilirubin Neg (Negative) Urine Urobilinogen 4.0 (<2.0) mg/dL Ur Leukocyte Esterase Tr (Negative) Urine WBC (Auto) 18.0 H (0.0-6.0) /HPF Urine RBC (Auto) 116.0 (0.0-6.0) /HPF U Epithel Cells (Auto) 5.0 (0-13.0) /HPF Urine Mucus 3+ /HPF Urine Yeast (Budding) 1+ /HPF Blood Type O POSITIVE Vital Signs 01/27/20 01/27/20 14:31 19:13 Temperature 98.7 F Pulse Rate 85 83 Respiratory 20 16 Rate Blood Pressure 122/77 117/68 Blood Pressure 122/77 [Left] O2 Sat by Pulse 100 96 Oximetry - Radiology Data Radiology results: report reviewed, image reviewed Print Report Referring Physician: HALEIGH SALAZAR Patient Name: YURY LARSEN Date of : 1990 Sex: Female Report Date: 2020-01-27 Report Status: Finalized Findings [facility] [address] [place] [address] Ultrasound Report Signed Patient: YURY LARSEN MR#: [id number] : 1990 Acct:[id number] Age/Sex: 29 / F ADM Date: 01/27/20 Loc: ED Att ending Dr: Ordering Physician: DEENA CHARLES Date of Service: 01/27/20 Procedure(s): US OB <= 14 weeks fetus Accession Number(s): [id number] cc: DEENA CHARLES OB Ultrasound HISTORY: , bleeding. TECHNIQUE: Grayscale and color imaging performed. COMPARISON: None FINDINGS: Uterus measures 11.0 x 7.9 x 9.6 cm. There is a single intrauterine gestation with crown-rump length of 6.2 cm corresponding with an EGA of 12 weeks and 4 days. Heart rate is 158 bpm. The right ovary measures 4.7 x 1.8 x 3.4 cm and contains a 2.5 cm cyst which is likely functional. The left ovary is not visualized. No pelvic free fluid. IMPRESSION: 1. Single viable intrauterine gestation as above. 2. Likely fun ctional right ovarian cyst. 3. Nonvisualization of the left ovary. Signer Name: Saroj Archibald MD Signed: 01/27/2020 8:27 PM Workstation Name: [id number] Transcribed By: JW Dictated By: Saroj Archibald MD Electronically Authenticated By: Saroj Archibald MD Signed Date/Time: 01/27/202026 DD/ 23 <MICHAEL GARCIA - Last Filed: 01/27/20 21:32> - Lab Data Result diagrams: 01/27/20 15:32 01/27/20 15:32 - Medical Decision Making This patient presents to the emergency department with a complaint of some vaginal bleeding that started just prior to presentation and the patient is about 12 weeks . On examination her abdomen is soft, nondistended and nontoxic in appearance. The patient is otherwise in no acute distress. Labs have been mostly unremarkable thus far except for a mild urinary tract infection. The patient had a ultrasound done earlier today but there has been some complications with uploading these images to the PACS system and therefore there has been a delay in diagnosis. The patient is going to be taken back to ultrasound to repeat the imaging. My colleague, Dr. Garcia, has graciously agreed to follow the imaging results and assist with any further disposition. <SAL SPARROW - Last Filed: 01/28/20 14:22> Critical care attestation.: If time is entered above; I have spent that time in minutes in the direct care of this critically ill patient, excluding procedure time. <MICHAEL GARCIA - Last Filed: 01/27/20 21:32> Critical Care Time: No Critical care attestation.: If time is entered above; I have spent that time in minutes in the direct care of this critically ill patient, excluding procedure time. <SAL SPARROW S - Last Filed: 01/28/20 14:22> ED Disposition Is pt being admited?: No Does the pt Need Aspirin: No <MICHAEL GARCIA - Last Filed: 01/27/20 21:32> Is pt being admited?: No Time of Disposition: 14:22 <SAL SPARROW S - Last Filed: 01/28/20 14:22> Clinical Impression: Threatened miscarriage, ASB (asymptomatic bacteriuria) Disposition: TO HOME OR SELFCARE Condition: Stable Instructions: Threatened Miscarriage (ED) Additional Instructions: Rest, avoid heavy lifting, and avoid strenuous physical activities. Continue outpatient vitamins. Do not have sex until cleared to do so by her respiratory therapy aide. Do not participate in sports, or strenuous physical activities. Please follow-up with your respiratory therapy aide within the next week. Please return to the emergency room right away with new pain, worsening pain, migration of pain, projectile vomiting, change in mental status, confusion, inability to tolerate liquid feeds, bleeding more than 2 pads soaked per hour, lightheadedness, dizziness, loss of consciousness, new, worsened or different symptoms not present on the initial emergency room evaluation Prescriptions: Nitrofurantoin [place]/M-Cryst [Macrobid CAP] 100 mg PO Q12HR #14 capsule Referrals: [facility] [Provider Group] - 3-5 Days Forms: Work/School Release Form(ED)
[2020-01-27 19:16] VITALS: BP 117/68
--- NOTE | 2020-01-27 20:31 | Ultrasound Report ---
OB Ultrasound HISTORY: , bleeding. TECHNIQUE: Grayscale and color imaging performed. COMPARISON: None FINDINGS: Uterus measures 11.0 x 7.9 x 9.6 cm. There is a single intrauterine gestation with crown-ru mp length of 6.2 cm corresponding with an EGA of 12 weeks and 4 days. Heart rate is 158 bpm. The righ t ovary measures 4.7 x 1.8 x 3.4 cm and contains a 2.5 cm cyst which is likely functional. The left o vary is not visualized. No pelvic free fluid. IMPRESSION: 1. Single viable intrauterine gestation as above. 2. Likely functional right ovarian cyst. 3. Nonvisualization of the left ovary. Signer Name: Saroj Archibald MD Signed: 01/27/2020 8:27 PM Workstation Name: [id number]
== END 2020-01-27 21:45 | disposition home or self-care (01) ==
LOC: ED 14:06
DX: O20.0 Threatened abortion (principal); R82.71 Bacteriuria; O99.331 Smoking (tobacco) complicating pregnancy, first trimester; Z79.899 Other long term (current) drug therapy; Z3A.12 12 weeks gestation of pregnancy
CPT/HCPCS: 36415; 76801; 80053; 81001; 84702; 85025; 86900; 86901; 87086

== ENCOUNTER 2020-06-29 01:40 | Inpatient (IN) | payer MEDICAID ==
[2020-06-29] MEDS ORDERED: LIDOCAINE (2%) 20 MG/1 ML VIAL 20 ML MDV INFILTRATI ONE (03:16)
[2020-06-29] MEDS ORDERED: ePHEDrine SULFATE 50 MG/1 ML INJ IV PRN ×2 (03:16→12:19)
[2020-06-29] MEDS ORDERED: TERBUTALINE 1 MG/1 ML INJ SUB-Q PRN (03:16)
[2020-06-29] MEDS ORDERED: AMPICILLIN/NS 2 GM/100 ML 2 GM/100 ML BAG IV ONE (03:16)
--- NOTE | 2020-06-29 03:30 | History and Physical Report ---
History of Present Illness Date of examination: 06/29/20 Date of admission: 06/29/2020 Chief complaint: 30 year old presents with complaint of leaking of clear fluid from vagina since 01:20 this morning. Patient also reports contractions. History of present illness: 30 year old presents with complaint of leaking of clear fluid from vagina since 01:20 this morning. Patient also reports contractions. Patient received care at [facility]; was able to access records via computer (not able to print them). LMP 10/19/3029. EDC 08/03/2020. significant for the following: history of delivery (patient was receiving progesterone injections and was comanaged with [facility]), increased psychosocial stressors, trichomonas (treated and cured), hypoglycemia, leukocytosis, recurrent syncope, recent BV (patient has been taking Clindamycin at home for BV). labs are as follows: O+, antibody screen negative, rubella immune, RPR nonreactive, HIV negative, hepatitis B surface antigen negative, gonorrhea negative, chlamydia negative, trichomonas positive (ELIZABETH negative), hemoglobin electrophoresis AA, varicella immune, 1 hour sugar test 79, AFP negative, GBS unknown. Past History Past Medical History: other (vitamin D deficiency, hypoglycemia, syncope) Past Surgical History: [facility] History: trichomonas (treated and cured). denies: abnormal PAP smear, chlamydia, gonorrhea, hepatitis B, hepatitis C, herpes, HIV, syphilis Family/Genetic History: none Social history: single, lives with family, full code, other (increased psychosocial stressors). denies: smoking, alcohol abuse, prescription drug abuse, IV drug use - Obstetrical History Expected Date of Delivery: 08/03/20 Actual Gestation: 35 Week(s) 0 Day(s) : 5 Para: 2 Hx # Term Pregnancies: 1 Number of Pregnancies: 1 Spontaneous Abortions: 2 Induced : 0 Number of Living Children: 2 Medications and Allergies Allergies Allergy/AdvReac Type Severity Reaction Status Date / Time hydrocodone bitartrate Allergy Shortness Verified 01/27/20 14:28 [From Vicodin] of Breath Home Medications Medication Instructions Recorded Confirmed Last Taken Type Vit No.130/Iron/Folic 1 each PO DAILY #90 tablet 05/04/17 Unknown Rx [ Tablet] Promethazine [Phenergan SUPPOS] 25 mg [place] Q6H #15 supp.rect 05/04/17 Unknown Rx propylthiouraciL [Propylthiouracil] 100 mg PO TID #60 tab 05/04/17 Unknown Rx propylthiouraciL [Propylthiouracil] 100 mg PO TID #60 tab 05/04/17 Unknown Rx Nitrofurantoin [place]/M-Cryst 100 mg PO Q12HR #14 capsule 01/27/20 Unknown Rx [Macrobid CAP] Active Meds: Active Medications Betamethasone Acet/Betameth SodPhos (Celestone Soluspan) 12 mg IM Q24HR MIRIAM Ephedrine Sulfate (Ephedrine Sulfate) 10 mg IV Q2M PRN PRN Reason: Hypotension Lactated Ringer's (Lactated Ringers) 1,000 mls @ 125 mls/hr IV DIRECT MIRIAM Oxytocin/Sodium Chloride (Pitocin/Ns 30 Unit/500ml) 30 units in 500 mls @ 40 mls/hr IV TITR MIRIAM; Protocol Ampicillin Sodium (Ampicillin/Ns 2 Gm/100 Ml) 2 gm in 100 mls @ 100 mls/hr IV ONCE ONE; Protocol Stop: 06/29/20 04:15 Ampicillin Sodium (Ampicillin/Ns 1 Gm/50 Ml) 1 gm in 50 mls @ 100 mls/hr IV Q4HR MIRIAM; Protocol Lidocaine (Xylocaine 2%) 20 ml INFILTRATI ONCE ONE Stop: 06/29/20 03:17 Terbutaline Sulfate (Brethine) 0.25 mg SUB-Q ONCE PRN PRN Reason: Hyperstimulation/Hypertonicity Review of Systems All systems: negative (leaking of fluid from vagina and contractions) - Vital Signs Vital signs: Vital Signs Temp Pulse Resp BP Pulse Ox 98.8 F 92 H 18 115/73 99 06/29/20 02:17 06/29/20 02:17 06/29/20 02:17 06/29/20 02:17 06/29/20 02:17 Temp Pulse Resp BP Pulse Ox 98.8 F 95 H 18 115/73 100 06/29/20 02:17 06/29/20 03:07 06/29/20 02:17 06/29/20 02:21 06/29/20 03:07 - Physical Exam Abdomen: Positive: normal appearance, soft. Negative: tenderness, guarding, rigidity Genitourinary (Female): Positive: normal external genitalia, normal perenium. Negative: perineal/vulvar lesions Vagina: Positive: other (large amount of clear fluid seen leaking from vagina) Uterus: Positive: enlarged. Negative: tender Anus/Rectum: Positive: normal perianal skin Extremities: Positive: normal. Negative: tenderness, edema - Obstetrical FHR: category 1 Uterine Contraction Monitor Mode: External Cervical Dilatation: 3 Cervical Effacement Percentage: 50 station: -3 Uterine Contraction Pattern: Irregular Uterine Contraction Intensity: Mild Results All other labs normal. Assessment and Plan A: at 35 weeks gestation. SROM. Early labor. GBS unknown. P: Admit. IV hydration. EFM. Celestone IM. GBS prophylaxis. Case management consult after delivery.
[2020-06-29] MEDS: LACTATED RINGERS 1,000 ML IV SCH ×4 (03:39→13:30)
[2020-06-29] MEDS ORDERED: BETAMET ACET/BETAMET NA PH 6 MG/ML INJ 5 ML MDV IM SCH (04:00)
[2020-06-29] MEDS ORDERED: OXYTOCIN DRIP 30 UNITS/500 ML BAG IV SCH (04:00)
[2020-06-29 05:02] LABS: Hematocrit 25.5 % (30.3-42.9); Hemoglobin 9.9 gm/dl (10.1-14.3); Mean Corpuscular Volume 90 fl (79-97); Red Blood Count 2.83 M/mm3 (3.65-5.03); Red Cell Distribution Width 16.2 % (13.2-15.2)
[2020-06-29 05:03] LABS: Platelet Count 945 K/mm3 (140-440)
[2020-06-29 05:04] LABS: Mean Corpuscular HGB Conc 39 % (30-34)
--- NOTE | 2020-06-29 07:39 | Event Note ---
Date: 06/29/20 Abnormal CBC. Repeat CBC ordered to verify. Called lab and they will come draw another CBC.
--- NOTE | 2020-06-29 07:52 | Event Note ---
Date: 06/29/20 SVE .
[2020-06-29] MEDS ORDERED: fentaNYL 100 MCG/2 ML INJ IV ONE ×2 (08:00→12:15)
[2020-06-29] MEDS: AMPICILLIN/NS 1 GM/50 ML 1 GM/50 ML BAG IV SCH ×2 (08:00→12:56)
[2020-06-29 09:05] LABS: Hematocrit 31.1 % (30.3-42.9); Hemoglobin 10.6 gm/dl (10.1-14.3); Mean Corpuscular HGB Conc 34 % (30-34); Mean Corpuscular Volume 90 fl (79-97); Platelet Count 234 K/mm3 (140-440); Red Blood Count 3.47 M/mm3 (3.65-5.03); Red Cell Distribution Width 13.9 % (13.2-15.2)
--- NOTE | 2020-06-29 11:17 | Event Note ---
Date: 06/29/20 Pt. requests pain medication. SVE 4.5/100/0 to +1.
[2020-06-29] MEDS ORDERED: NALOXONE 2 MG/2 ML INJ IV PRN (12:19)
--- NOTE | 2020-06-29 12:22 | Anesthesia Consultation ---
Anesthesia Consult and Med Hx Date of service: 06/29/20 - Airway Anesthetic Teeth Evaluation: Chipped ROM Head & Neck: Adequate Mental/Hyoid Distance: Adequate - Pulmonary Exam CTA: Yes - Cardiac Exam Cardiac Exam: RRR - Pre-Operative Health Status ASA Pre-Surgery Classification: ASA3 Proposed Anesthetic Plan: Epidural - Pulmonary Hx Asthma: No COPD: No Hx Pneumonia: No - Endocrine Hx End Stage Renal Disease: No - Other Systems Hx Alcohol Use: No - Additional Comments Anesthesia Medical History Comments: Hypoglycemia, syncope, vit d deficiency
--- NOTE | 2020-06-29 12:36 | Progress Note ---
Labor Epidural - Labor Epidural Start Time: 12:23 Stop Time: 12:31 Performed by:: ANGELIKA GARCIA Procedure: Patient is requesting epidural for labor pain. H&P, and labs reviewed. Procedure explained, questions answered, consent obtained. Patient in sitting position with blood pressure cuff and pulse ox on and working. Timeout performed immediately before start of procedure. Sterile betadine prep/drape. 3 mL 1% lidocaine skin wheal at L[3]-L[4]. 18-gauge Gentistead epidural needle advanced to [id number] with saline at [7] cm. Epidural dexmedetomidine [30] mcg administered. Epidural catheter advanced to [12] cm, negative aspiration for blood and csf, negative test dose 3 ml 1.5% lidocaine with epinephrine. Sterile steri-strips and tegaderm applied, followed by tape reinforcement. Patient tolerated procedure well. Brian SHETTY
[2020-06-29 12:46] LABS: Basophils % (Manual) 0 % (0.0-1.8); Eosinophils % (Manual) 0 % (0.0-4.3); Total Cells Counted 100
[2020-06-29 12:49] LABS: Platelet Estimate Consistent w Auto; RBC Morphology Normal
[2020-06-29] MEDS ORDERED: fentaNYL-BUPIV 2 MCG/ML-0.125% 200 MCG/100 ML BAG EPIDURAL SCH (13:00)
[2020-06-29 13:09] LABS: Bilirubin,Urine NEG (Negative); Blood,Urine MOD (Negative); Color,Urine Straw (Yellow); Mucus,Urine FEW /HPF; Protein,Urine <15 mg/dL mg/dL (Negative); Urobilinogen,Urine < 2.0 mg/dL (<2.0)
[2020-06-29 13:13] LABS: Amphetamine Screen,Urine Negative; Benzodiazepines Screen,Urine Negative; Cocaine Screen,Urine Negative; Methadone Screen,Urine Negative; Opiate Screen,Urine Negative
[2020-06-29 13:35] LABS: Cannabinoid Screen,Urine Positive
[2020-06-29] MEDS ORDERED: miSOPROStol 200 MCG TAB ONE (16:08)
[2020-06-29] MEDS ORDERED: ACETAMINOPHEN 325 MG TAB PO PRN (16:55)
[2020-06-29] MEDS ORDERED: miSOPROStol 200 MCG TAB PR ONE (16:57)
[2020-06-29] MEDS ORDERED: ONDANSETRON 4 MG/2 ML INJ IV PRN (16:58)
--- NOTE | 2020-06-29 17:00 | Procedure Note ---
OB Delivery Note - Delivery Date of Delivery: 06/29/20 Surgeon: MELVA MENDIOLA Estimated blood loss: other (450 cc) - Vaginal Delivery presentation: vertex Delivery position: OA Intrapartum events: other(please specify) ( labor and ) Delivery induction: none Delivery monitor: external FHT, external uterine Route of delivery: Delivery placenta: spontaneous Delivery cord: 3 umbilical vessels Episiotomy: none Delivery laceration: none Anesthesia: epidural Delivery comments: Spontaneous vaginal delivery at 15:59 of liveborn female infant weighing 1.874 kg over intact perineum with apgars of 8/9. labor and ; NICU present at delivery. Epidural anesthesia. Baby placed skin to skin with mom immediately after delivery; spontaneous cry and respirations. Baby bulb suctioned and dried with warm towels. 3 vessel cord double clamped and cut and baby taken to warmer for evaluation by NICU team. Cord blood obtained. Spontaneous delivery of intact placenta and membranes by sandy mechanism at 16:03. Pitocin to IV fluids and fundal massage provided after delivery of placenta. Cytotec 800 mcg rectally for uterine atony. Fundus firmed after cytotec. Urbina catheter inserted to keep bladder empty. EBL 450 cc. No lacerations noted. Vaginal sweep negative. Sponge and instrument counts correct. Placenta to path due to and possible placental abnormality. Mother and baby stable.
[2020-06-29] MEDS ORDERED: DOCUSATE SODIUM 100 MG CAP PO SCH (22:00)
[2020-06-29] MEDS: IBUPROFEN 600 MG TAB PO SCH (22:05)
[2020-06-29] MEDS: FERROUS SULFATE 325 MG TAB PO SCH (22:05)
[2020-06-30] MEDS: IBUPROFEN 600 MG TAB PO SCH ×2 (00:45→05:58)
[2020-06-30 08:13] LABS: Hematocrit 29.2 % (30.3-42.9); Hemoglobin 9.9 gm/dl (10.1-14.3)
[2020-06-30] MEDS: FERROUS SULFATE 325 MG TAB PO SCH (09:58)
--- NOTE | 2020-06-30 13:02 | Progress Note ---
Assessment and Plan A: Day 1 Asymptomatic Anemia P: Follow routine orders Continue Ferrous Sulfate 325 mg PO BID at home Depo 150 mg IM x 1 dose to be given prior to d/c D/C home today per pt request Subjective - Subjective Date of service: 06/30/20 Patient reports: appetite normal, voiding normally, pain well controlled, flatus, bowel movement, ambulating normally : in NICU Objective - Vital Signs Latest vital signs: Vital Signs Temp Pulse Resp BP Pulse Ox 06/30/20 08:27 98.4 F 38 L 18 118/64 100 06/30/20 06:31 18 06/30/20 06:03 98.2 F 86 18 113/78 99 06/30/20 05:58 18 06/29/20 23:14 98.6 F 73 18 107/57 100 06/29/20 23:05 18 06/29/20 22:05 18 06/29/20 18:37 98.6 F 75 18 124/60 06/29/20 18:02 65 100 06/29/20 17:59 69 114/60 06/29/20 17:57 96 H 99 06/29/20 17:52 74 100 06/29/20 17:50 71 121/55 06/29/20 17:47 78 100 06/29/20 17:42 74 100 06/29/20 17:39 78 113/68 06/29/20 17:37 67 100 06/29/20 17:32 80 100 06/29/20 17:29 81 111/58 06/29/20 17:27 72 100 06/29/20 17:22 71 100 06/29/20 17:19 89 120/66 06/29/20 17:17 72 100 06/29/20 17:14 93 H 94 06/29/20 17:12 73 100 06/29/20 17:09 77 115/61 06/29/20 17:07 74 100 06/29/20 17:02 80 100 06/29/20 16:59 82 127/58 06/29/20 16:57 91 H 100 06/29/20 16:52 121 H 100 06/29/20 16:50 81 120/59 06/29/20 16:47 85 100 06/29/20 16:42 86 100 06/29/20 16:37 94 H 98 11/15/20 16:32 91 H 100 15/20 16:29 85 112/61 15/20 16:27 93 H 100 15/20 16:22 105 H 97/59 100 15/20 16:17 79 100 15/20 16:12 91 H 99 15/20 16:07 94 H 99 15/20 16:02 104 H 100 15/20 15:57 93 H 100 15/20 15:52 107 H 100 15/20 15:47 71 99 15/20 15:42 81 100 15/20 15:37 75 100 15/20 15:32 81 100 15/20 15:27 67 100 15/20 15:22 67 100 15/20 15:21 78 109/57 15/20 15:17 102 H 100 15/20 15:12 72 100 15/20 15:07 72 100 15/20 15:02 68 100 15/20 14:57 67 100 15/20 14:52 77 99/55 100 15/20 14:47 71 100 15/20 14:42 90 99 15/20 14:37 76 100 15/20 14:32 74 100 15/20 14:27 75 100 15/20 14:23 71 108/60 15/20 14:22 73 100 15/20 14:17 77 99 15/20 14:12 71 100 15/20 14:07 79 99 15/20 14:02 75 100 15/20 13:57 73 100 15/20 13:52 78 100 15/20 13:51 72 107/67 15/20 13:47 74 100 15/20 13:42 97 H 100 15/20 13:37 73 100 15/20 13:32 77 100 15/20 13:27 70 100 15/20 13:23 68 105/59 15/20 13:22 71 100 15/20 13:17 82 100 15/20 13:12 75 100 15/20 13:07 74 100 11/15/20 13:02 77 100 Intake and Output 06/29/20 06/30/20 06/30/20 22:59 06:59 14:59 Intake Total 240 Output Total 425 Balance -185 Intake: Oral 240 Output: Urine 425 Indwelling Catheter 225 Void 200 Other: Total, Intake Amount 240 Total, Output Amount 200 Estimated Blood Loss 450 - Exam Breasts: Present: normal Cardiovascular: Present: Regular rate, Normal S1, Normal S2 Lungs: Present: Clear to auscultation, Normal air movement Abdomen: Present: normal appearance, soft, normal bowel sounds Uterus: Present: normal, firm, fundal height below umbilicus Extremities: Present: normal - Labs Labs: Abnormal lab results 06/29/20 06/30/20 Range/Units 12:50 06:53 Hgb 9.9 L (10.1-14.3) gm/dl Hct 29.2 L (30.3-42.9) % Urine pH 8.0 H (5.0-7.0)
--- NOTE | 2020-06-30 13:04 | Discharge Summary ---
Providers - Providers Date of Admission: 06/29/20 03:16 Date of discharge: 06/30/20 Attending physician: JAMILA VELASQUEZ MD 06/30/20 08:00 Consult to Case Management [CONS] Routine Services Needed at Discharge: Shipping Order Clerk Notified:: n/a Additional Physician Instructions: UDS positive for THC. Primary care physician: JAMILA VELASQUEZ MD Hospitalization Reason for admission: IUP - Delivery: Episiotomy: none Laceration: none Other procedures: none complications: none Discharge diagnosis: delivery baby: female Disposition: DC- TO HOME OR SELFCARE Plan - Provider Discharge Summary Activity: routine, no sex for 6 weeks, no heavy lifting 4 weeks, no strenuous exercise Diet: routine Instructions: routine Additional instructions: [] Smoking cessation referral if applicable(refer to patient education folder for contact #) [] Refer to [facility] Book[facility] Call your doctor immediately for: * Fever > 100.5 * Heavy vaginal bleeding ( >1 pad per hour) * Severe persistent headache * Shortness of breath * Reddened, hot, painful area to leg or breast * Drainage or odor from incision. * Keep incision clean and dry at all times and follow doctor's instructions regarding bathing/showering - Follow up plan Follow up: JAMILA VELASQUEZ MD [Primary Care Provider] - 6 Weeks
[2020-06-30] MEDS ORDERED: medroxyPROGESTERone ACETATE 150 MG/ML SYRINGE IM ONE (14:00)
[2020-06-30 14:16] VITALS: BP 106/65
--- NOTE | 2020-06-30 17:16 | Post Anesthesia Evaluation ---
- Post Anesthesia Evaluation Patient Participated: Yes Airway Patent: Yes Stable Respiratory Function: Yes Nausea/Vomiting: No Temp > 96.8F: Yes Pain Manageable: Yes Adequeate Hydration: Yes Anesthesia Complications: No Block Receding Appropriately: Yes Patient on Ventilator: No
== END 2020-06-30 13:30 | disposition home or self-care (01) | DRG 775 ==
LOC: TRG 01:40 → APU 01:41 → TRG 03:16 → LD 03:16 → OB 18:50
PROVIDERS: ADMIT Obstetrics & Gynecology; ATTEND Obstetrics & Gynecology
PROC: 10E0XZZ Delivery of Products of Conception, External Approach (ICD-10-PCS; principal; 2020-06-29)
PROC: 3E0R3BZ Introduction of Anesthetic Agent into Spinal Canal, Percutaneous Approach (ICD-10-PCS; 2020-06-29)
PROC: 00HU33Z Insertion of Infusion Device into Spinal Canal, Percutaneous Approach (ICD-10-PCS; 2020-06-29)
DX: O60.14X0 Preterm labor third trimester with preterm delivery third trimester, not applicable or unspecified (principal); Z37.0 Single live birth; Z3A.35 35 weeks gestation of pregnancy; Z20.828 Contact with and (suspected) exposure to other viral communicable diseases; Z88.5 Allergy status to narcotic agent; O90.81 Anemia of the puerperium
CPT/HCPCS: 36415; 80307; 81001; 85007; 85014; 85018; 85025; 85027; 86592; 86850; 86900; 86901; 87086; 88307; G0378; J0290; J0702; J1050; J2405; J3010; J3105; J7120; U0003

== ENCOUNTER 2021-05-28 00:02 | Observation (INO) | payer MEDICAID ==
[2021-05-28] MEDS ORDERED: ONDANSETRON 4 MG/2 ML INJ IV ONE ×2 (00:57→04:20)
[2021-05-28] MEDS ORDERED: SODIUM CHLORIDE 0.9% 1000 ML 1,000 ML IV ONE ×3 (00:57→04:20)
--- NOTE | 2021-05-28 00:59 | Emergency Department Report ---
ED HPI - General Chief complaint: Fall Stated complaint: FALL HITTING HEAD/PREGANCY ISSUES/VOMITING Time Seen by Provider: 05/28/21 00:49 Source: patient Mode of arrival: Ambulatory Limitations: No Limitations - History of Present Illness Initial comments: Patient is a 31-year-old female who presents emergency room for dizziness and syncopal episode. Patient states she was walking up her steps became dizzy and lightheaded and she passed out and hit the back of her head. Patient states she fell on the steps. Patient denies any other trauma except for hitting her head. Patient denies any other pain. Patient states she is . Patient states she is not sure how long. Patient that she tested positive on April 11, 2021 with a home test. Patient states she has not had an ultrasound or went to an [facility]AL[facility] INSTRUMENT SPECIALIST. Patient denies vaginal bleeding. Patient denies loss of fluid. Patient denies any abdominal pain. Patient denies any other symptoms except for dizziness, lightheadedness, syncopal episode and pain in the back of her head and frequent nausea vomiting since March. Patient states she is nonverbal hold anything down for several days. Patient denies recent travel. Patient denies recent international travel. Patient denies exposure to the novel coronavirus. Patient denies sick contacts. Patient denies fever and chills. Patient denies cough. Patient denies diarrhea. Patient denies coming in contact with anybody with symptoms of the novel coronavirus. Complaint: other -: Sudden Severity: moderate, severe Severity scale (0 -10): 6 Quality: aching Consistency: constant Improves with: rest Worsens with: other (Palpation) Associated symptoms: nausea/vomiting, headache, malaise, syncope. denies: vaginal bleeding, vaginal discharge, abdominal pain, dysuria, vision changes, dysparuenia, rash, seizure, shortness of breath, weakness Vaginal bleeding: none :: Yes Pre-nathalie care: none - Related Data Previous Rx's Medication Instructions Recorded Last Taken Type Vit No.130/Iron/Folic 1 each PO DAILY #90 tablet 05/04/17 Unknown Rx [ Tablet] Promethazine [Phenergan SUPPOS] 25 mg MO Q6H #15 supp.rect 05/04/17 Unknown Rx propylthiouraciL [Propylthiouracil] 100 mg PO TID #60 tab 05/04/17 Unknown Rx propylthiouraciL [Propylthiouracil] 100 mg PO TID #60 tab 05/04/17 Unknown Rx Nitrofurantoin [place]/M-Cryst 100 mg PO Q12HR #14 capsule 01/27/20 Unknown Rx [Macrobid CAP] Allergies Allergy/AdvReac Type Severity Reaction Status Date / Time hydrocodone bitartrate Allergy Shortness Verified 01/27/20 14:28 [From Vicodin] of Breath ED Review of Systems ROS: Stated complaint: FALL HITTING HEAD/PREGANCY ISSUES/VOMITING Other details as noted in HPI Constitutional: malaise. denies: chills, fever Eyes: denies: eye pain, eye discharge, vision change ENT: denies: ear pain, throat pain Respiratory: denies: cough, shortness of breath, wheezing Cardiovascular: denies: chest pain, palpitations Endocrine: no symptoms reported Gastrointestinal: as per HPI, nausea, vomiting. denies: abdominal pain, diarrhea Genitourinary: denies: urgency, dysuria, discharge Musculoskeletal: denies: back pain, joint swelling, arthralgia Skin: denies: rash, lesions Neurological: as per HPI, headache. denies: weakness, paresthesias Psychiatric: denies: anxiety, depression Hematological/Lymphatic: denies: easy bleeding, easy bruising ED Past Medical Hx - Past Medical History Previous Medical History?: No Hx Congestive Heart Failure: No Hx Diabetes: No Hx Asthma: No Hx COPD: No - Surgical History Past Surgical History?: No - Family History Family history: no significant - Social History Smoking Status: Never Smoker Substance Use Type: None - Medications Home Medications: Home Medications Medication Instructions Recorded Confirmed Last Taken Type Vit No.130/Iron/Folic 1 each PO DAILY #90 tablet 05/04/17 Unknown Rx [ Tablet] Promethazine [Phenergan SUPPOS] 25 mg MO Q6H #15 supp.rect 05/04/17 Unknown Rx propylthiouraciL [Propylthiouracil] 100 mg PO TID #60 tab 05/04/17 Unknown Rx propylthiouraciL [Propylthiouracil] 100 mg PO TID #60 tab 05/04/17 Unknown Rx Nitrofurantoin [place]/M-Cryst 100 mg PO Q12HR #14 capsule 01/27/20 Unknown Rx [Macrobid CAP] ED Physical Exam - General Limitations: No Limitations General appearance: alert, in no apparent distress - Head Head exam: Present: atraumatic, normocephalic - Eye Eye exam: Present: normal appearance, PERRL Pupils: Present: normal accommodation - ENT ENT exam: Present: mucous membranes dry - Neck Neck exam: Present: normal inspection, full ROM. Absent: tenderness, mening ismus - Respiratory Respiratory exam: Present: normal lung sounds bilaterally. Absent: respiratory distress - Cardiovascular Cardiovascular Exam: Present: regular rate, normal rhythm. Absent: systolic murmur, diastolic murmur, rubs, gallop - GI/Abdominal GI/Abdominal exam: Present: soft, normal bowel sounds. Absent: distended, tenderness, guarding - Extremities Exam Extremities exam: Present: normal inspection, full ROM. Absent: tenderness, calf tenderness - Back Exam Back exam: Present: normal inspection, full ROM. Absent: tenderness, CVA tenderness (R), CVA tenderness (L) - Neurological Exam Neurological exam: Present: alert, oriented X3 - Psychiatric Psychiatric exam: Present: normal affect, normal mood - Skin Skin exam: Present: warm, dry, intact, normal color. Absent: rash ED Course Vital Signs 05/28/21 05/28/21 05/28/21 00:50 00:57 02:49 Temperature 98.0 F Pulse Rate 69 72 Respiratory 20 20 20 Rate Blood Pressure 112/70 118/68 [Left] O2 Sat by Pulse 98 98 98 Oximetry 05/28/21 05/28/21 05/28/21 04:02 06:37 07:16 Temperature Pulse Rate 75 83 72 Respiratory 20 20 14 Rate Blood Pressure 113/65 105/63 103/60 [Left] O2 Sat by Pulse 98 98 100 Oximetry - Reevaluation(s) Reevaluation #1: Patient is still complaining of nausea and vomiting. 05/28/21 02:21 Reevaluation #2: Patient still complaining of nausea. Patient was given Zofran. Patient will be given more fluids. I discussed all results with patient. I discussed plan of care with patient. Patient agrees with plan of care and admission. Patient to be admitted to the AIR [facility]ALITY INSTRUMENT SPECIALIST service. 05/28/21 04:21 - Consultations Consultation #1: I discussed the case with Dr. WHITLOCK , AIR QUALITY INSTRUMENT SPECIALIST. Dr. Whitlock is going to admit the patient. 05/28/21 04:45 ED Medical Decision Making - Lab Data Result diagrams: 05/28/21 01:01 05/28/21 01:01 - Radiology Data Radiology results: report reviewed ULTRASOUND OBSTETRIC BABY A INDICATION / CLINICAL INFORMATION: Hyperemesis, . TECHNIQUE: Transabdominal. COMPARISON: None available. FINDINGS: GESTATIONAL SAC: Well-defined oval shape and intrauterine in location. YOLK SAC: No significant abnormality. EMBRYO/FETUS: No significant abnormality. - [place]-Rump Length = 6.3 cm = 12 weeks, 5 day(s). - Heart Rate, beats per minute (if present) = 179 ADNEXA: No significant abnormality. FREE FLUID: None. ADDITIONAL FINDINGS: None. IMPRESSION: 1. Twin living intrauterine with estimated sonographic age of BABY A 12 weeks, 5 day(s). 2. Baby B reported separately ULTRASOUND OBSTETRIC BABY B INDICATION / CLINICAL INFORMATION: HYPEREMESIS, . TECHNIQUE: Transabdominal. COMPARISON: None available. FINDINGS: GESTATIONAL SAC: Well-defined oval shape and intrauterine in location. YOLK SAC: No significant abnormality. EMBRYO/FETUS: No significant abnormality. - [place]-Rump Length = 5.2 cm = 11 weeks, 6 day(s). - Heart Rate, beats per minute (if present) = 179 ADNEXA: No significant abnormality. FREE FLUID: None. ADDITIONAL FINDINGS: None. IMPRESSION: 1. Twin, living intrauterine with estimated sonographic age of baby B 11 weeks, 6 day(s). 2. Twin A reported separately - Medical Decision Making Patient is a 31-year-old female who presents emergency room with lighthea dedness, dizziness and a syncopal episode. Patient fell and hit the back of her head. Patient had a normal neuro exam. Patient is ambulatory in the ER without difficulty. Patient planes of severe nausea vomiting. Patient had multiple weeks of nausea vomiting. Patient also states she is for unknown amount of time. Patient had a positive hCG. Patient had a ultrasound done which shows a twin IUP. Patient had labs done which were consistent with dehydration. Patient had ketones in her urine. Patient given multiple liters of fluid in ER. Patient given multiple doses of Zofran. Patient will require admission for hyperemesis rubidium intractable nausea vomiting and dehydration. Patient admitted to the HEALTH DIAGNOSTICS TEACHER service. Critical care time documented due to the multiple reassessments, prolonged time at the bedside, interpretation of diagnostics and labs. - Differential Diagnosis Hyperemesis of barium, intractable nausea vomiting, , syncopal epi Critical Care Time: Yes Critical care time in (mins) excluding proc time.: 35 Critical care attestation.: If time is entered above; I have spent that time in minutes in the direct care of this critically ill patient, excluding procedure time. Critical Care Time: 35 minutes ED Disposition Clinical Impression: Hyperemesis gravidarum, Dehydration, Dizziness Qualifiers: Weeks of gestation: 12 weeks Qualified Code(s): Z3A.12 - 12 weeks gestation of Nausea & vomiting Qualifiers: Vomiting type: unspecified Vomiting Intractability: intractable Qualified Code(s): R11.2 - Nausea with vomiting, unspecified Syncopal episodes Qualifiers: Syncope type: unspecified Qualified Code(s): R55 - Syncope and collapse Disposition: ADMITTED INPATIENT Is pt being admited?: Yes Does the pt Need Aspirin: No Condition: Fair Time of Disposition: 04:21
[2021-05-28 01:19] LABS: Basophils # (Auto) 0.1 K/mm3 (0.0-0.1); Basophils % (Auto) 0.7 % (0.0-1.8); Eosinophils # (Auto) 0.1 K/mm3 (0.0-0.4); Eosinophils % (Auto) 0.6 % (0.0-4.3); Hematocrit 35.4 % (30.3-42.9); Hemoglobin 11.9 gm/dl (10.1-14.3); Lymphocytes # (Auto) 1.1 K/mm3 (1.2-5.4); Lymphocytes % (Auto) 6.2 % (13.4-35.0); Mean Corpuscular HGB Conc 34 % (30-34); Mean Corpuscular Volume 91 fl (79-97); Monocytes # (Auto) 1.2 K/mm3 (0.0-0.8); Monocytes % (Auto) 6.7 % (0.0-7.3); Platelet Count 284 K/mm3 (140-440); Red Blood Count 3.89 M/mm3 (3.65-5.03); Red Cell Distribution Width 14.3 % (13.2-15.2)
[2021-05-28 01:38] LABS: Alanine Aminotransferase 8 units/L (7-56); Albumin 4.1 g/dL (3.9-5); Blood Urea Nitrogen 12 mg/dL (7-17); Calcium 9.6 mg/dL (8.4-10.2); Hemolysis Index 1
[2021-05-28 01:43] LABS: BUN/Creatinine Ratio 20; Bilirubin,Direct < 0.2 mg/dL (0-0.2)
[2021-05-28 03:00] LABS: Bacteria,Urine 1+ /HPF (Negative); Bilirubin,Urine NEG (Negative); Blood,Urine MOD (Negative); Color,Urine Yellow (Yellow); Mucus,Urine 3+ /HPF
[2021-05-28] MEDS ORDERED: ONDANSETRON 4 MG/2 ML INJ IV PRN (04:44)
[2021-05-28] MEDS: METOCLOPRAMIDE 10 MG/2 ML INJ IV SCH ×3 (06:20→15:06)
--- NOTE | 2021-05-28 06:57 | Ultrasound Report ---
ULTRASOUND OBSTETRIC BABY A INDICATION / CLINICAL INFORMATION: Hyperemesis, . TECHNIQUE: Transabdominal. COMPARISON: None available. FINDINGS: GESTATIONAL SAC: Well-defined oval shape and intrauterine in location. YOLK SAC: No significant abnormality. EMBRYO/FETUS: No significant abnormality. - [place]-Rump Length = 6.3 cm = 12 weeks, 5 day(s). - Heart Rate, beats per minute (if present) = 179 ADNEXA: No significant abnormality. FREE FLUID: None. ADDITIONAL FINDINGS: None. IMPRESSION: 1. Twin living intrauterine with estimated sonographic age of BABY A 12 weeks, 5 day(s). 2. Baby B reported separately Signer Name: Med Mims MD Signed: 05/28/2021 6:52 AM Workstation Name: [id number]
--- NOTE | 2021-05-28 06:59 | Ultrasound Report ---
ULTRASOUND OBSTETRIC BABY B INDICATION / CLINICAL INFORMATION: HYPEREMESIS, . TECHNIQUE: Transabdominal. COMPARISON: None available. FINDINGS: GESTATIONAL SAC: Well-defined oval shape and intrauterine in location. YOLK SAC: No significant abnormality. EMBRYO/FETUS: No significant abnormality. - [place]-Rump Length = 5.2 cm = 11 weeks, 6 day(s). - Heart Rate, beats per minute (if present) = 179 ADNEXA: No significant abnormality. FREE FLUID: None. ADDITIONAL FINDINGS: None. IMPRESSION: 1. Twin, living intrauterine with estimated sonographic age of baby B 11 weeks, 6 day(s). 2. Twin A reported separately Signer Name: Med Mims MD Signed: 05/28/2021 6:55 AM Workstation Name: [id number]
--- NOTE | 2021-05-28 08:40 | History and Physical Report ---
History of Present Illness Date of examination: 05/28/21 Date of admission: 05/28/21 04:44 Chief complaint: dizziness w/ nausea and vomiting History of present illness: twin gestation, 11w6d Past History Past Medical History: denies: no pertinent history (denies) Past Surgical History: D&C (2018 for SAB) CORPORATE DEVELOPMENT INTERN History: trichomonas (hx of trich) Social history: no significant social history - Obstetrical History Expected Date of Delivery: 12/11/21 Actual Gestation: 11 Week(s) 6 Day(s) : 7 Para: 3 Hx # Term Pregnancies: 1 Number of Pregnancies: 2 Spontaneous Abortions: 3 Induced : 0 Number of Living Children: 3 Medications and Allergies Allergies Allergy/AdvReac Type Severity Reaction Status Date / Time hydrocodone bitartrate Allergy Shortness Verified 01/27/20 14:28 [From Vicodin] of Breath Home Medications Medication Instructions Recorded Confirmed Last Taken Type Vit No.130/Iron/Folic 1 each PO DAILY #90 tablet 05/04/17 Unknown Rx [ Tablet] Promethazine [Phenergan SUPPOS] 25 mg TN Q6H #15 supp.rect 05/04/17 Unknown Rx propylthiouraciL [Propylthiouracil] 100 mg PO TID #60 tab 05/04/17 Unknown Rx propylthiouraciL [Propylthiouracil] 100 mg PO TID #60 tab 05/04/17 Unknown Rx Nitrofurantoin [place]/M-Cryst 100 mg PO Q12HR #14 capsule 01/27/20 Unknown Rx [Macrobid CAP] Active Meds: Active Medications Dextrose/Lactated Ringer's (D5lr) 1,000 mls @ 500 mls/hr IV DIRECT MIRIAM Stop: 05/29/21 06:59 Dextrose/Lactated Ringer's (D5lr) 1,000 mls @ 150 mls/hr IV DIRECT MIRIAM Metoclopramide HCl (Metoclopramide 10 Mg/2 Ml Inj) 10 mg IV Q6H MIRIAM Ondansetron HCl (Ondansetron 4 Mg/2 Ml Inj) 4 mg IV Q6H PRN PRN Reason: N/V unrelieved by Reglan Promethazine HCl (Promethazine 25 Mg Rect Supp) 25 mg TN Q6H MIRIAM Review of Systems All systems: negative Constitutional: fatigue - Vital Signs Vital signs: Vital Signs Temp Pulse Resp BP Pulse Ox 98.0 F 69 20 112/70 98 05/28/21 00:50 05/28/21 00:50 05/28/21 00:50 05/28/21 00:50 05/28/21 00:50 Temp Pulse Resp BP Pulse Ox 98.0 F 72 14 103/60 100 05/28/21 00:50 05/28/21 07:16 05/28/21 07:16 05/28/21 07:16 05/28/21 07:16 - Physical Exam Cardiovascular: Regular rate Lungs: Positive: Normal air movement Abdomen: Positive: normal appearance, soft Genitourinary (Female): Positive: normal external genitalia - Obstetrical FHR: other (present x 2 on u/s) Results Result Diagrams: 05/28/21 01:01 05/28/21 01:01 Abnormal lab results 05/28/21 05/28/21 05/28/21 Range/Units 01:01 01:01 01:01 WBC 17.7 H (4.5-11.0) K/mm3 Lymph % (Auto) 6.2 L (13.4-35.0) % Lymph # (Auto) 1.1 L (1.2-5.4) K/mm3 [place] # (Auto) 1.2 H (0.0-0.8) K/mm3 Seg Neutrophils % 85.8 H (40.0-70.0) % Seg Neutrophils # 15.2 H (1.8-7.7) K/mm3 Sodium 136 L (137-145) mmol/L Chloride 97.1 L (98-107) mmol/L Carbon Dioxide 21 L (22-30) mmol/L HCG, Quant 32006 H (0-4) mIU/mL Urine WBC (Auto) (0.0-6.0) /HPF 05/28/21 Range/Units 02:49 WBC (4.5-11.0) K/mm3 Lymph % (Auto) (13.4-35.0) % Lymph # (Auto) (1.2-5.4) K/mm3 [place] # (Auto) (0.0-0.8) K/mm3 Seg Neutrophils % (40.0-70.0) % Seg Neutrophils # (1.8-7.7) K/mm3 Sodium (137-145) mmol/L Chloride (98-107) mmol/L Carbon Dioxide (22-30) mmol/L HCG, Quant (0-4) mIU/mL Urine WBC (Auto) 10.0 H (0.0-6.0) /HPF All other labs normal. Assessment and Plan 31y/o admitted for hyperemesis w/ syncope. Admission orders in EMR. Pt asking for apple juice - reviewed plan for hyperemesis. EDC set by u/s from ED 12/11/2021. - Patient Problems (1) Twin gestation in first trimester Current Visit: Yes Status: Acute Qualifiers: Multiple gestation type: unspecified Qualified Code(s): O30.001 - Twin , unspecified number of placenta and unspecified number of amniotic sacs, first trimester (2) No care in current Current Visit: Yes Status: Acute Qualifiers: Trimester: first trimester Qualified Code(s): O09.31 - Supervision of with insufficient care, first trimester (3) Dehydration Current Visit: Yes Status: Acute (4) Dizziness Current Visit: Yes Status: Acute (5) Hyperthyroidism affecting in first trimester Current Visit: No Status: Acute Plan to address problem: hyperthyroidism noted on previous admission, although patient denies hx. thyroid panel ordered
[2021-05-28] MEDS ORDERED: D5W/LACTATED RINGERS 1,000 ML IV SCH (09:00)
[2021-05-28] MEDS: D5W/LACTATED RINGERS 1,000 ML IV SCH ×2 (09:12→11:39)
[2021-05-28] MEDS: PROMETHAZINE 25 MG RECT SUPP PR SCH ×2 (09:15→15:06)
[2021-05-28] MEDS ORDERED: PRENATAL VIT27-FE FUMARATE-FOLIC ACID VIT TAB PO SCH (10:00)
[2021-05-28 11:07] LABS: Free T4 (Free Thyroxine) 1.32 ng/dL (0.76-1.46)
[2021-05-28 17:18] VITALS: BP 109/47
--- NOTE | 2021-05-28 17:37 | Event Note ---
Date: 05/28/21 patient states she is ready to go home and wants to leave AMA. Nurse will have her sign consent, patient instructed to follow up with OBGYN [facility] for care.
== END 2021-05-28 17:40 | disposition left against medical advice (07) ==
LOC: ED 00:02 → OB 04:44
PROVIDERS: ADMIT Obstetrics & Gynecology; ATTEND Obstetrics & Gynecology
DX: O21.9 Vomiting of pregnancy, unspecified (principal); O30.001 Twin pregnancy, unspecified number of placenta and unspecified number of amniotic sacs, first trimester; O26.891 Other specified pregnancy related conditions, first trimester; R55 Syncope and collapse; E86.0 Dehydration; O99.281 Endocrine, nutritional and metabolic diseases complicating pregnancy, first trimester; E05.90 Thyrotoxicosis, unspecified without thyrotoxic crisis or storm; O09.31 Supervision of pregnancy with insufficient antenatal care, first trimester; Z3A.12 12 weeks gestation of pregnancy
CPT/HCPCS: 36415; 76801; 76802; 80048; 80076; 81001; 82010; 84439; 84443; 84702; 84703; 85025; 87086; 96361; 96374; 96375; 96376; 99291; G0378; J2405; J2765; J7030; J7121